=== PATIENT | male | born 1995 | race Caucasian/White ===

== ENCOUNTER 2018-04-29 08:48 | Emergency (ER) | payer BC, SELFPAY ==
[2018-04-29 08:49] VITALS: BP 162/80; PULSE 85; RESP 16; TEMP 36.6; O2SAT 96; BMI 30.8
--- NOTE | 2018-04-29 09:06 | CT_ITS ---
STUDY: CT ABDOMEN AND PELVIS WITH CONTRAST REASON FOR EXAM: Male, 22 years old. Abdominal pain and diarrhea. The patient has a history of Crohn's disease. RADIATION DOSAGE (If Supplied By Facility): CTDIvol = ( 14.67 ) mGy, DLP = ( 1134.09 ) mGycm TECHNIQUE: Transaxial images were obtained from the dome of the diaphragm to the symphysis pubis without oral contrast. 100 ml of Isovue 300 contrast was administered. Sagittal and coronal images were reconstructed. Individualized dose optimization techniques were used for this CT. COMPARISON: Comparison is made with prior examination dated May 12, 2017. FINDINGS: Mild degree of increased markings at the lung bases suggestive of dependent bibasilar atelectasis. The visualized portions of the heart are within normal limits. Normal liver. Normal gallbladder and extrahepatic biliary system. Normal spleen. Normal pancreas. Normal bilateral adrenal glands. Normal right kidney. Normal left kidney. There is a small hiatal hernia. There is fluid distention of the stomach. There is circumferential wall thickening of the distal ileum and terminal ileum. There is mild distention of the distal small bowel. There is a fecal material seen within the distal ileum. Small lymph nodes are seen within the mesentery in the midabdomen and right lower quadrant suggestive of mesenteric adenitis. There is evidence of mucosal thickening of the descending colon. The appendix is visualized and appears normal. Normal abdominal aorta. Normal inferior vena cava. There is borderline retroperitoneal lymphadenopathy with enlarged nodes no greater than 10mm in the short axis diameter. Normal urinary bladder. Normal abdominal wall. Normal osseous structures. CT/Abdomen/Pelvis W IV Cont ONLY IMPRESSION: Circumferential wall thickening of the terminal ileum and distal ileum with mild dilatation of the distal small bowel loops containing fecal material. Recurrent Crohn's disease is suspected. Electronically Signed: Kevin Alarcon MD at 11:00 EST Tel [phone], Service support ,
[2018-04-29 09:19] VITALS: BP 164/85; PULSE 14; RESP 75; TEMP 36.7; O2SAT 93
[2018-04-29] MEDS: 0.9% Normal Saline 1,000 ML 1000 ML IV (09:24)
[2018-04-29] MEDS: Morphine 4 MG/ML Syringe IV (09:24)
[2018-04-29] MEDS: Ondansetron 4 MG/2 ML Vial IV (09:24)
[2018-04-29 09:40] LABS: Absolute Lymphocyte Count 1.63 X10^3/ul (0.83-4.51); Basophil# 0.02 X10^3/uL; Basophil% 0.2 % (0-1); Eosinophil# 0.06 X10^3/uL; Eosinophils% 0.5 % (0-5); Hematocrit 46.4 % (40-54); Hemoglobin 16.3 g/dl (13.0-16.5); Lymphocyte # 1.63 X10^3/ul (4.0); Lymphocyte % 14.2 % (19-41); Mean Corp Hgb Conc 35.1 g/gl (32-36); Mean Corpuscular Hgb 29.4 pg (27.0-32.0); Mean Corpuscular Volume 83.6 fL (80-94); Mean Platelet Vol. 10.2 fl (6.2-12.0); Monocyte# 0.74 X10^3/uL; Monocyte% 6.4 % (0-10); Neutrophil # 9.02 X10^3/uL (2.7-7.7); Neutrophil % 78.4 % (47-70); Platelet Count 226 K/mm3 (150-450); RBC Distribution Width CV 12.8 % (11.6-14.6); RBC Distribution Width SD 38.9 fl (35.1-43.9); Red Blood Count 5.55 M/mm3 (4.6-6.2); White Blood Count 11.5 K/mm3 (4.4-11.0)
[2018-04-29 09:41] LABS: POSITIVE COUNT NO; POSITIVE DIFFERENTIAL NO; POSITIVE MORPHOLOGY NO
[2018-04-29 10:03] LABS: ALB/GLOB Ratio 1.1 RATIO (0.9-2.4); AST(SGOT) 28 U/L (15-37); Alanine Aminotransfer ALT/SGPT 61 U/L (16-61); Alkaline Phosphatase 84 U/L (45-117); Anion Gap 7 (5-15); BUN 21 mg/dL (7-18); BUN/Creat Ratio 21.8 RATIO (10-20); Calcium,Total 9.1 mg/dL (8.5-10.1); Chloride 105 mmol/L (98-107); Creatinine, Serum 0.96 mg/dL (0.70-1.30); EST Glomerular Filtration Rate 101 mL/min (>60); Est Glom Filt Rate - Afr Amer 123 mL/min (>60); Estimated Creatinine Clearance 137.95 ml/min; Globulin 3.5 g/dL (2.2-4.2); Glucose 106 mg/dL (74-106); Lipase 71 U/L (73-393); Potassium 4.3 mmol/L (3.5-5.1); Protein, Total 7.5 g/dL (6.4-8.2); Sodium Level 138 mmol/L (136-145)
[2018-04-29 10:54] VITALS: BP 158/77; PULSE 88; RESP 16; TEMP 36.7; O2SAT 97
[2018-04-29 10:54] LABS: Bacteria 0 SEEN /hpf (None Seen); Mucous, Urine 0 SEEN /hpf (<or=2+); Red Blood Cells-Urine 0 SEEN /hpf (0-5); White Blood Cells 0 SEEN /hpf (0-5)
[2018-04-29 10:55] LABS: Color, Urine Straw (Yellow); Glucose, Dipstick Normal (Normal); Ketone-Dipstick Negative (Negative); Leukocyte Esterase-Dipstick Negative /ul (Negative); Nitrite-Dipstick Negative (Negative); Occult Blood-Urine Negative /ul (Negative); Protein-Dipstick Negative (Negative); Urine Bilirubin Dipstick Negative (Negative); Urine Clarity Clear (Clear); Urine Urobilinogen Normal (Normal); Urine pH 6.5 (5.0 - 8.0)
[2018-04-29 11:03] LABS: Squamous Epithelial Cells - UA 0-5 SEEN /hpf (0-5)
--- NOTE | 2018-04-29 11:21 | ED.VISSUMM ---
- ER Visit Summary Date of Service: 04/29/18 Chief Complaint: Abdominal pain History of Present Illness: The patient is a 22 M with upper abdominal pain that started yesterday around 8 PM. Associated with nausea and diarrhea. No vomiting or blood. Patient has a history of Crohn's disease. He is not currently on steroids or medications for Crohn's disease. He has some chills but no fevers. No urinary symptoms. Physical Examination: Afebrile and vital signs unremarkable. Appears uncomfortable but not toxic or in distress. Heart regular. Lungs clear. Abdomen is tender diffusely, more so over the upper hemiabdomen. No guarding or rebound. No distention. Skin unremarkable. Back nontender. Test Results: White count 11.5. Otherwise labs unremarkable. Urinalysis unremarkable. CT shows evidence of inflammation at the distal ileum with some bowel dilatation. Emergency Department Course and Treatment: Patient received fluids, Zofran, morphine, and Toradol for pain and symptom control. Patient is not septic or obstructed. He would like to follow-up as an outpatient. He was prescribed Motrin, Zofran, and a prednisone taper. Follow-up with his doctor. Return for any new or worsening issues. Treatment Plan: As above Disposition: Discharge Impression: 1. Crohn's flare This note was generated with [employer] dictation software. It may contain incorrect words, spelling, and punctuation that were not noted in review of the chart prior to signing ED Disposition - Plan for ED Patient: Chief Complaint: Abd Pain Referrals: Marucs Babb DO [Primary Care Provider] -
--- NOTE | 2018-04-29 11:25 | ED.DCSUM_ITS ---
- ER Visit Summary Date of Service: 04/29/18 Chief Complaint: Abdominal pain History of Present Illness: The patient is a 22 M with upper abdominal pain that started yesterday around 8 PM. Associated with nausea and diarrhea. No vomiting or blood. Patient has a history of Crohn's disease. He is not curr ently on steroids or medications for Crohn's disease. He has some chills but no fevers. No urinary symptoms. Physical Examination: Afebrile and vital signs unremarkable. Appears uncomfortable but not toxic or in distress. Heart regular. Lungs clear. Abdomen is tender diffusely, more so over the upper hemiabdomen. No guarding or rebound. No distention. Skin unremarkable. Back nontender. Test Results: White count 11.5. Otherwise labs unremarkable. Urinalysis unremarkable. CT shows evidence of inflammation at the distal ileum with some bowel dilatation. Emergency Department Course and Treatment: Patient received fluids, Zofran, morphine, and Toradol for pain and symptom control. Patient is not septic or obstructed. He would like to follow-up as an outpatient. He was prescribed Motrin, Zofran, and a prednisone taper. Follow- up with his doctor. Return for any new or worsening issues. Treatment Plan: As above Disposition: Discharge Impression: 1. Crohn's flare This note was generated with [employer] dictation software. It may contain incorrect words, spelling, and punctuation that were not noted in review of the chart prior to signing ED Disposition - Plan for ED Patient: Chief Complaint: Abd Pain Referrals: Marcus Babb DO [Primary Care Provider] -
--- NOTE | 2018-04-29 11:25 | ED.DEP ---
ED Disposition - Plan for ED Patient: Chief Complaint: Abd Pain Instructions: Discharge Instructions for Crohn's Disease Prescriptions: Ondansetron [Zofran Odt] 4 mg PO Q8H PRN PRN #10 tab PRN Reason: Nausea Ibuprofen [Motrin] 800 mg PO TID PRN PRN #20 tab PRN Reason: Pain Prednisone 10 mg PO UD #33 tab Referrals: Marcus Babb DO [Primary Care Provider] -
[2018-04-29] MEDS: Ketorolac 30 MG/ML Syringe IV (11:30)
== END 2018-04-29 11:38 | disposition home or self-care (01) ==
LOC: ED 09:07
PROVIDERS: Emergency Provider Emergency Medicine; Family Provider Family Medicine; PCP Family Medicine
DX: K50.90 Crohn's disease, unspecified, without complications (principal); Z87.19 Personal history of other diseases of the digestive system
CPT/HCPCS: 74177; 80053; 81001; 83690; 85025; 96361; 96374; 96375; 99283; J7030; Q9967; A4216; J2405

== ENCOUNTER 2018-08-27 09:31 | Emergency (ER) | payer BC, SELFPAY ==
[2018-08-27 09:33] VITALS: BP 151/84; PULSE 98; RESP 14; TEMP 36.8; O2SAT 97; BMI 30.8
--- NOTE | 2018-08-27 09:44 | ED.VISSUMM ---
- ER Visit Summary Date of Service: 08/27/18 Chief Complaint: Nausea vomiting and diarrhea History of Present Illness: The patient is a 23 M who presents with nausea vomiting and diarrhea. He has had about 1 week of URI-like illness with congestion rhinorrhea sore throat. Last night he developed nausea vomiting diarrhea. He had 3 episodes of nonbloody nonbilious emesis as well as 5-6 episodes of diarrhea. He denies any hematochezia, melena, hematemesis. He also complains of some sharp diffuse abdominal cramping. He does have a history of Crohn's disease but specifically states that this does not feel like a Crohn's flare. He denies any fevers. Physical Examination: Afebrile vitals unremarkable No distress Heart regular rate and rhythm Lungs clear Abdomen soft nondistended normal bowel sounds he does have some diffuse nonfocal tenderness without guarding without rebound Test Results: CBC CMP lipase was notable only for mild leukocytosis with white count of 11.9. Emergency Department Course and Treatment: Patient was treated with IV fluids, Zofran, Imodium, Bentyl. He feels much better on reevaluation. Patient discharged to follow-up as an outpatient. This is most likely a viral gastroenteritis and is self-limiting. However he does understand return for new or worsening symptoms. Treatment Plan: [] Disposition: Discharge Impression: Gastroenteritis This note was generated with [employer] dictation software. It may contain incorrect words, spelling, and punctuation that were not noted in review of the chart prior to signing ED Disposition - Plan for ED Patient: Referrals: Marcus Babb DO [Primary Care Provider] -
[2018-08-27] MEDS: 0.9% Normal Saline 1,000 ML 1000 ML IV (09:51)
[2018-08-27] MEDS: Dicyclomine 10 MG Capsule 20 MG PO (09:58)
[2018-08-27] MEDS: Loperamide 2 MG Capsule 4 MG PO (09:58)
[2018-08-27] MEDS: Ondansetron 4 MG/2 ML Vial IV (09:58)
[2018-08-27 09:59] VITALS: TEMP 37.1
[2018-08-27 10:09] LABS: Absolute Lymphocyte Count 0.79 X10^3/ul (0.83-4.51); Absolute Neutrophil Count 10.4 X10^3/uL (2.0-7.7); Basophil# 0.01 X10^3/uL; Basophil% 0.1 % (0-1); Eosinophil# 0.04 X10^3/uL; Eosinophils% 0.3 % (0-5); Hemoglobin 16.6 g/dl (13.0-16.5); Lymphocyte # 0.79 X10^3/ul (4.0); Lymphocyte % 6.7 % (19-41); Mean Corp Hgb Conc 36.1 g/gl (32-36); Mean Corpuscular Hgb 30.1 pg (27.0-32.0); Mean Corpuscular Volume 83.5 fL (80-94); Mean Platelet Vol. 9.6 fl (6.2-12.0); Monocyte# 0.55 X10^3/uL; Monocyte% 4.6 % (0-10); Neutrophil # 10.43 X10^3/uL (2.7-7.7); POSITIVE COUNT NO; POSITIVE DIFFERENTIAL NO; POSITIVE MORPHOLOGY NO; Platelet Count 219 K/mm3 (150-450); RBC Distribution Width CV 12.8 % (11.6-14.6); RBC Distribution Width SD 38.4 fl (35.1-43.9); Red Blood Count 5.51 M/mm3 (4.6-6.2); White Blood Count 11.9 K/mm3 (4.4-11.0)
[2018-08-27 10:15] LABS: ALB/GLOB Ratio 1.2 RATIO (0.9-2.4); AST(SGOT) 20 U/L (15-37); Alanine Aminotransfer ALT/SGPT 50 U/L (16-61); Albumin, Serum 4.2 g/dL (3.2-5.0); Alkaline Phosphatase 94 U/L (45-117); Anion Gap 6 (5-15); BUN 25 mg/dL (7-18); Calcium,Total 8.7 mg/dL (8.5-10.1); Chloride 106 mmol/L (98-107); EST Glomerular Filtration Rate 97 mL/min (>60); Est Glom Filt Rate - Afr Amer 117 mL/min (>60); Estimated Creatinine Clearance 131.29 ml/min; Globulin 3.4 g/dL (2.2-4.2); Glucose 99 mg/dL (74-106); Lipase 70 U/L (73-393); Potassium 3.7 mmol/L (3.5-5.1); Protein, Total 7.6 g/dL (6.4-8.2); Sodium Level 137 mmol/L (136-145)
--- NOTE | 2018-08-27 10:38 | ED.DEP ---
ED Disposition - Plan for ED Patient: Instructions: ED Gastroenteritis Viral Referrals: Marcus Babb DO [Primary Care Provider] -
[2018-08-27 10:43] VITALS: BP 104/63; PULSE 71; RESP 15; O2SAT 98
== END 2018-08-27 10:44 | disposition home or self-care (01) ==
LOC: ED 10:13
PROVIDERS: Emergency Provider Emergency Medicine; Family Provider Family Medicine; PCP Family Medicine
DX: K52.9 Noninfective gastroenteritis and colitis, unspecified (principal); J34.89 Other specified disorders of nose and nasal sinuses; J02.9 Acute pharyngitis, unspecified; R09.81 Nasal congestion; K50.90 Crohn's disease, unspecified, without complications; Z87.19 Personal history of other diseases of the digestive system
CPT/HCPCS: 80053; 83690; 85025; 96361; 96374; 99284; J7030; A4216; J2405

== ENCOUNTER 2019-09-23 15:48 | Emergency (ER) | payer BC, SELFPAY ==
[2019-09-23 15:49] VITALS: BP 149/81; PULSE 73; RESP 18; TEMP 36.6; O2SAT 98; BMI 30.3
--- NOTE | 2019-09-23 16:14 | ED.DCSUM_ITS ---
History of Present Illness Chief Complaint: Dizziness Detail of Chief Complaint: Spinning sensation that is transient and lightheadedness Informant: Patient Onset: Today, Hours Context: Sudden Onset Timing: Intermittent Quality: Spinning sensation and lightheadedness Location: Home Current Severity: Mild Maximum Severity: Moderate Worsened by: Possibly change in position, supine Relieved by: Nothing Associated Symptoms: Unsteadiness and walking to the left when symptomatic Narrative: Patient is 24-year-old male with history of Crohn's disease who is on no medication presented with chief complaint of dizziness which he described as spinning and lightheadedness. He states when he had symptoms he walked to the left. Symptoms lasted no longer than 2 minutes. There was no visual, ocular auditory symptoms. And specifically, there was no complaint of diplopia. Patient denies headache. Denies rhinorrhea, congestion postnasal drainage. He denies ringing in his ears, decreased hearing or ear pain. He denies throat pain, dysphasia or dysphonia. He denies neck stiffness or pain. He denies photophobia. He denies cardiac respiratory symptoms. He denies nausea, vomiting or diarrhea. He states he has 2-3 bowel movements a day. He has not noticed any blood. He denies black or maroon stool. He denies paresthesia, anesthesia or motor weakness. He is a non-smoker. He is a social drinker at family gatherings, only. Denies drug use. He states his drove him to the emergency department. Prior similar symptoms: No Recent Illness/Hospitalization: No - Past Medical History (1) Crohns disease Status: Acute Past Medical History - Allergies and Home Meds Allergies/Adverse Reactions: Allergies No Known Allergies Allergy (Verified 09/23/19 15:51) Primary Care Physician: Marcus Babb DO [Primary Care Provider] - Prior records reviewed: Yes Surgical History: no surgical history Lives: Spouse/ Significant Other, With Family Smoking Status: Never smoker Alcohol: Occasional Drugs: None - Family History Maternal Family History: Reports: - - DIVERTICULITIS Review of Systems General: Denies: Chills, Fever, Subjective, Sweats Eyes: Denies: Visual changes - bilaterally, Blurred Vision - bilaterally, Diplopia ENT: Denies: Bilateral ear pain, Rhinorrhea, Sore throat Cardiovascular: Denies: Chest pain, Palpitations Respiratory: Denies: Dyspnea, Cough, Dyspnea on exertion Gastrointestinal: Denies: Abdominal pain, Nausea, Vomiting, Diarrhea, Melena, Hematochezia Genitourinary: Denies: Hematuria, Frequency Musculoskeletal: Denies: Myalgias, Arthralgias, Neck pain, Back pain, Swelling, Extremity Pain, -, - Neurological: Denies: Headache, Weakness, Parasthesia, Numbness, -, - Hematologic: Denies: Easy bruising, Easy bleeding Physical Exam Vital Signs/Narrative: Vital Signs Temp Pulse Resp BP Pulse Ox 09/23/19 15:49 97.9 F 73 18 149/81 H 98 Inital Vital Signs reviewed: Yes General: Well nourished, Well developed, No Acute Distress Head: Normocephalic, Atraumatic Eyes: Perrl, EOMI. Negative for: Pale conjunctiva, Scleral icterus ENT: Moist mucous membranes, No rhinorrhea, TM's clear Neck: Supple, Nontender Cardiovascular: Regular rate, Regular rhythm, No murmurs, Normal S1, Normal S2 Respiratory: No distress, CTA bilaterally, Chest nontender Abdomen: Soft, Nontender, Nondistended, Normal bowel sounds Back: Nontender, Normal Inspection Extremities: Nontender, No edema Skin: Normal color, No rash Neurological: Alert, Oriented x3, Cranial nerves II-XII grossly intact, Normal Strength, Normal Sensation, Normal DTR, Normal Gait - Gait is normal. Able to walk on heels and toes. Tandem gait is normal., - - Cerebellar testing is normal. Romberg test is negative. [place]-Hallpike maneuver precipitated symptoms with head turned to the left. Psychological: Normal affect, Normal Mood Diagnostic/Tx/Re-eval Laboratory Results 09/23/19 09/23/19 16:18 16:18 WBC 9.8 RBC 5.53 Hgb 16.0 Hct 47.3 MCV 85.5 MCH 28.9 MCHC 33.8 RDW Std Deviation 37.9 RDW Coeff of Bo 12.2 Plt Count 265 MPV 9.4 Immature Gran % (Auto) 0.700 Neut % (Auto) 61.8 Lymph % (Auto) 28.2 [place] % (Auto) 7.5 Eos % (Auto) 1.4 Baso % (Auto) 0.4 Absolute Neuts (auto) 6.1 Absolute Lymphs (auto) 2.76 Nucleated RBC % 0 Sodium 140 Potassium 4.3 Chloride 105 Carbon Dioxide 28.0 Anion Gap 7 BUN 17 Creatinine 1.02 Estim Creat Clear Calc 124.03 Est GFR (MDRD) Af Amer 113 Est GFR (MDRD) Non-Af 94 BUN/Creatinine Ratio 16.7 Glucose 96 Calcium 9.3 Return results are unremarkable. Since patient improved with Chito maneuver presume patient has paroxysmal benign positional vertigo - Medical Decision Making Patient had symptoms with head turned to left Chito maneuver was performed. Patient reported no symptoms when head was positioned to the left however he reported symptoms which resolved after 4 minutes when head was positioned to the right side. When he was reassessed at 1617 his symptoms had resolved. Because he has component of lightheadedness and history of Crohn's disease basic metabolic panel and CBC were obtained to assess for electrolytes, renal function as well as H&H. Plan is to discharge to home with appropriate home-going instructions Patient was informed of his results at 1650. He has had no return of his nausea they extension of motion/dizziness. Will discharge to home ED Disposition - Plan for ED Patient: Disposition: Home or Assisted Living Diagnosis: Benign paroxysmal positional vertigo due to bilateral vestibular disorder Referrals: Marcus Babb DO [Primary Care Provider] - As Needed
[2019-09-23 16:31] LABS: Absolute Lymphocyte Count 2.76 X10^3/uL (0.83-4.51); Absolute Neutrophil Count 6.1 X10^3/uL (2.0-7.7); Basophil# 0.04 X10^3/uL; Basophil% 0.4 % (0-1); Eosinophil# 0.14 X10^3/uL; Eosinophils% 1.4 % (0-5); Hematocrit 47.3 % (40-54); Lymphocyte # 2.76 X10^3/ul (4.0); Lymphocyte % 28.2 % (19-41); Mean Corp Hgb Conc 33.8 g/dL (32-36); Mean Corpuscular Hgb 28.9 pg (27.0-32.0); Mean Corpuscular Volume 85.5 fL (80-94); Mean Platelet Vol. 9.4 fl (6.2-12.0); Monocyte# 0.73 X10^3/uL; Monocyte% 7.5 % (0-10); NRBC Flagged by Analyzer 0 % (0-5); Neutrophil # 6.05 X10^3/uL (2.7-7.7); Neutrophil % 61.8 % (47-70); Platelet Count 265 K/mm3 (150-450); RBC Distribution Width CV 12.2 % (11.6-14.6); RBC Distribution Width SD 37.9 fl (35.1-43.9); Red Blood Count 5.53 M/mm3 (4.6-6.2); White Blood Count 9.8 K/mm3 (4.4-11.0)
[2019-09-23 16:37] LABS: Anion Gap 7 (5-15); BUN 17 mg/dL (7-18); BUN/Creat Ratio 16.7 RATIO (10-20); Calcium,Total 9.3 mg/dL (8.5-10.1); Chloride 105 mmol/L (98-107); Creatinine, Serum 1.02 mg/dL (0.70-1.30); EST Glomerular Filtration Rate 94 mL/min (>60); Est Glom Filt Rate - Afr Amer 113 mL/min (>60); Estimated Creatinine Clearance 124.03 ml/min; Glucose 96 mg/dL (74-106); Potassium 4.3 mmol/L (3.5-5.1); Sodium Level 140 mmol/L (136-145)
--- NOTE | 2019-09-23 16:54 | ED.VISSUMM ---
- ER Visit Summary Date of Service: 09/23/19 Chief Complaint: [] History of Present Illness: The patient is a 24 M [] Physical Examination: [] Test Results: [] Emergency Department Course and Treatment: [] Treatment Plan: [] Disposition: [] Impression: [] This note was generated with [employer] dictation software. It may contain incorrect words, spelling, and punctuation that were not noted in review of the chart prior to signing ED Disposition - Plan for ED Patient: Disposition: Home or Assisted Living Diagnosis: Benign paroxysmal positional vertigo due to bilateral vestibular disorder Instructions: ED BPV Vertigo Referrals: Marcus Babb DO [Primary Care Provider] - As Needed
[2019-09-23 17:06] VITALS: BP 135/77; PULSE 70; RESP 16; O2SAT 98
== END 2019-09-23 17:06 | disposition home or self-care (01) ==
PROVIDERS: Emergency Provider Emergency Medicine; PCP Family Medicine
DX: H81.13 Benign paroxysmal vertigo, bilateral (principal); K50.90 Crohn's disease, unspecified, without complications
CPT/HCPCS: 36415; 80048; 85025; 99282

== ENCOUNTER 2020-10-12 14:46 | Outpatient (RCR) | payer BC, SELFPAY | END 2020-11-16 23:59 | LOC: IMMUN 14:46 | PROVIDERS: Visit Provider Family Medicine | DX: Z23 Encounter for immunization (principal) | CPT/HCPCS: 0001A; 91300 ==

== ENCOUNTER 2021-04-11 14:43 | Emergency (ER) | payer BC, SELFPAY ==
[2021-04-11] VITALS (7 sets, daily range): BP systolic 102–137; BP diastolic 68–95; PULSE 76–98; RESP 16–18; TEMP 36.7–37.2; O2SAT 94–99; BMI 34.7
--- NOTE | 2021-04-11 15:34 | EX.ED.DYSGE1 ---
HPI History of Present Illness Chief Complaint: Abd Pain Informant: patient Onset/Context/Timing Onset: Today Context: Gradual Onset Current Severity: Moderate Maximum Severity: Moderate Narrative Narrative: Patient present secondary abdominal pain that he believes is secondary to a Crohn's flare. He was diagnosed with Crohn's at the age of 6. He states every year about this time he has a flare. About 3 hours ago he started developing upper abdominal pain with some mild lower abdominal cramping. He has had some diarrhea but no noted blood. He has chills but no fever. He is not currently followed by anyone for his Crohn's disease and is not on any medication for it. [facility] Medical History Crohn's disease Diverticulitis Home Medications NK 09/23/19 [History Last Taken Unknown] dicyclomine 20 mg PO TID PRN #20 tab 04/11/21 [Rx Last Taken Unknown] hydrocodone-acetaminophen 1 tab PO Q6H PRN 3 Days #10 tab 04/11/21 [Rx Last Taken Unknown] prednisone See Taper PO DAILY #63 tab 04/11/21 [Rx Last Taken Unknown] Allergy/AdvReac Type Severity Reaction Status Date / Time No Known Allergies Allergy Verified 04/11/21 14:46 Surgical History History of placement of ear tubes Social History Smoking Status: Never smoker ROS [facility] ED Constitutional Constitutional ED: Reports chills; Denies fever(s) Eyes Eyes: Denies change in vision ENT ENT ED: Denies sore throat Cardiovascular Cardiovascular: Denies chest pain Respiratory/Chest Respiratory/Chest: Denies cough or dyspnea Gastrointestinal Gastrointestinal: Reports abdominal pain, diarrhea and nausea; Denies vomiting Genitourinary Genitourinary ED: Denies dysuria Musculoskeletal Musculoskeletal: Denies back pain Integumentary Denies rash Neurologic Neurologic: Denies headache(s) or weakness Endocrine Endocrinology: Denies polydipsia or polyuria Allergic/Immunologic Allergic/Immunologic ED: Denies urticaria EXAM Physical Exam Const Vital Signs: 04/11/21 14:43 04/11/21 15:32 04/11/21 16:37 Temperature 98.8 F 98.9 F 98.6 F Temperature Source Temporal Temporal Temporal Pulse Rate 98 98 98 Respiratory Rate 16 18 16 Blood Pressure 137/95 H 130/81 H 115/82 H Blood Pressure Mean 109 97 93 Pulse Ox 99 98 96 Oxygen Delivery Method Room Air Room Air Room Air 04/11/21 16:59 04/11/21 17:26 04/11/21 18:52 Temperature 98.9 F 98.1 F Temperature Source Temporal Oral Pulse Rate 76 88 84 Respiratory Rate 16 16 16 Blood Pressure 118/68 116/76 102/71 Blood Pressure Mean 84 89 81 Pulse Ox 96 94 Oxygen Delivery Method Room Air Room Air Room Air 04/11/21 19:14 Temperature 98.9 F Temperature Source Temporal Pulse Rate 89 Respiratory Rate 16 Blood Pressure 122/72 H Blood Pressure Mean 88 Pulse Ox 96 Oxygen Delivery Method Room Air Positive well nourished and well developed General Appearance ED: well developed HEENT Reports moist mucous membranes Eyes PERRL and EOMs intact bilaterally Neck supple Chest Wall inspection of chest normal and palpation of chest normal Resp normal respiratory effort and clear to auscultation bilaterally Cardio regular rate and regular rhythm GI Auscultation: hypoactive bowel sounds Palpation: soft and tender other (Mild diffuse tenderness palpation. No guarding or rebound.) Extremity normal to inspection Neuro oriented x3 Sensorium / Orientation: alert Psych mental status grossly normal Skin no rashes or lesions noted MDM MDM MDM Narrative Medical decision making narrative: Lab work obtained. Patient given morphine and Zofran for pain along with IV fluids. He is given a dose of p.o. Bentyl. Lab Data Attestation: I reviewed the patient's lab results. Labs: Laboratory Results - last 24 hr 04/11/21 04/11/21 04/11/21 15:40 15:40 15:40 WBC 9.6 RBC 5.87 Hgb 17.0 H Hct 47.7 MCV 81.3 MCH 29.0 MCHC 35.6 RDW Std Deviation 36.6 RDW Coeff of Bo 12.4 Plt Count 241 MPV 9.2 Immature Gran % (Auto) 0.400 Neut % (Auto) 90.5 H Lymph % (Auto) 8.1 L [place] % (Auto) 0.4 Eos % (Auto) 0.4 Baso % (Auto) 0.2 Absolute Neuts (auto) 8.7 H Absolute Lymphs (auto) 0.78 L Nucleated RBC % 0 ESR 1 Sodium 139 Potassium 3.7 Chloride 106 Carbon Dioxide 27.0 Anion Gap 6 BUN 19 H Creatinine 1.17 Estim Creat Clear Calc 110.26 Est GFR (MDRD) Af Amer 96 Est GFR (MDRD) Non-Af 79 BUN/Creatinine Ratio 16.2 Glucose 103 Lactic Acid Calcium 9.6 Total Bilirubin 0.70 Direct Bilirubin 0.21 AST 20 ALT 60 Alkaline Phosphatase 93 C-React Prot Ext Range Total Protein 7.7 Albumin 4.0 Globulin 3.7 Lipase 53 L 04/11/21 04/11/21 15:40 17:37 WBC RBC Hgb Hct MCV MCH MCHC RDW Std Deviation RDW Coeff of Bo Plt Count MPV Immature Gran % (Auto) Neut % (Auto) Lymph % (Auto) [place] % (Auto) Eos % (Auto) Baso % (Auto) Absolute Neuts (auto) Absolute Lymphs (auto) Nucleated RBC % ESR Sodium Potassium Chloride Carbon Dioxide Anion Gap BUN Creatinine Estim Creat Clear Calc Est GFR (MDRD) Af Amer Est GFR (MDRD) Non-Af BUN/Creatinine Ratio Glucose Lactic Acid 2.3 H* Calcium Total Bilirubin Direct Bilirubin AST ALT Alkaline Phosphatase C-React Prot Ext Range 9.31 H Total Protein Albumin Globulin Lipase Radiography Diagnostic Testing: Clinical Impression(s) from Imaging Studies Abdomen/Pelvis CT 04/11/21 19:14 IMPRESSION: Findings consistent with acute flare of Crohn''s disease affecting the terminal ileum. No focal fluid collection or fistula. Electronically Signed: Berny Jacobs MD at 20:15 EST Tel , Service support , Treatment and Re-Evaluation Comments:: Initial lab work unremarkable. I spoke with Dr. Gómez, on-call for GI. As patient is not currently on anything for Crohn's disease he did asked that we give the patient a dose of Solu-Medrol and start him on prednisone at home. He did also ask for sed rate, CRP, lactic acid and stool studies if available. CT scan abdomen pelvis with contrast obtained. CT scan does confirm findings consistent with an acute flare of Crohn's disease affecting the terminal ileum. No fluid collection or fistula noted. Test results are discussed with patient and spouse at bedside. Patient be given prescription for prednisone along with Bentyl. He is to follow-up with Dr. Gómez as an outpatient. Discharge Plan Triage Chief Complaint: Abd Pain ED Provider: Candace Stewart Dx/Rx/DC Orders Clinical Impression: Crohns disease Instructions: ED Crohn's Disease Prescriptions: New dicyclomine 20 mg tablet 20 mg PO TID PRN (Reason: abdominal cramping) Qty: 20 RF: 0 prednisone 10 mg tablet See Taper mg PO DAILY Qty: 63 RF: 0 hydrocodone-acetaminophen 5-325 mg tablet 1 tab PO Q6H PRN (Reason: pain) 3 Days Qty: 10 RF: 0 No Action NK RF: 0 Primary Care Provider: Abner Sheth Referrals: Abner Sheth DO [Primary Care Provider] - Brown Gómez DO [STAFF PHYSICIAN] - As soon as possible Disposition Disposition: Home, Self Care
[2021-04-11] MEDS: Morphine 4 MG/ML Syringe IV (15:43)
[2021-04-11] MEDS: Ondansetron 4 MG/2 ML Vial IV (15:43)
[2021-04-11] MEDS: 0.9% Normal Saline 1,000 ML 1000 ML IV (15:43)
[2021-04-11 15:51] LABS: Absolute Lymphocyte Count 0.78 X10^3/uL (0.83-4.51); Absolute Neutrophil Count 8.7 X10^3/uL (2.0-7.7); Basophil# 0.02 X10^3/uL; Basophil% 0.2 % (0-1); Eosinophil# 0.04 X10^3/uL; Eosinophils% 0.4 % (0-5); Hematocrit 47.7 % (40-54); Lymphocyte # 0.78 X10^3/ul (0.83-4.51); Lymphocyte % 8.1 % (19-41); Mean Corp Hgb Conc 35.6 g/dL (32-36); Mean Corpuscular Volume 81.3 fL (80-94); Mean Platelet Vol. 9.2 fl (6.2-12.0); Monocyte# 0.04 X10^3/uL; Monocyte% 0.4 % (0-10); NRBC Flagged by Analyzer 0 % (0-5); Neutrophil # 8.68 X10^3/uL (2.7-7.7); Neutrophil % 90.5 % (47-70); Platelet Count 241 K/mm3 (150-450); RBC Distribution Width CV 12.4 % (11.6-14.6); RBC Distribution Width SD 36.6 fl (35.1-43.9); Red Blood Count 5.87 M/mm3 (4.6-6.2); White Blood Count 9.6 K/mm3 (4.4-11.0)
[2021-04-11 16:08] LABS: AST(SGOT) 20 U/L (15-37); Alanine Aminotransfer ALT/SGPT 60 U/L (16-61); Alkaline Phosphatase 93 U/L (45-117); Anion Gap 6 (5-15); BUN 19 mg/dL (7-18); BUN/Creat Ratio 16.2 RATIO (10-20); Bilirubin, Direct 0.21 mg/dL (0.00-0.30); Calcium,Total 9.6 mg/dL (8.5-10.1); Chloride 106 mmol/L (98-107); Creatinine, Serum 1.17 mg/dL (0.70-1.30); EST Glomerular Filtration Rate 79 mL/min (>60); Est Glom Filt Rate - Afr Amer 96 mL/min (>60); Estimated Creatinine Clearance 110.26 ml/min; Globulin 3.7 g/dL (2.2-4.2); Glucose 103 mg/dL (74-106); Lipase 53 U/L (73-393); Potassium 3.7 mmol/L (3.5-5.1); Protein, Total 7.7 g/dL (6.4-8.2); Sodium Level 139 mmol/L (136-145)
[2021-04-11] MEDS: 0.9% Normal Saline 1,000 ML 150 ML IV (17:00)
[2021-04-11] MEDS: Dicyclomine 10 MG Capsule 20 MG PO (17:41)
[2021-04-11 18:20] LABS: CRP 9.31 mg/L (0.0-3.0)
[2021-04-11 18:51] LABS: Lactic Acid 2.3 mmol/L (0.4-1.9)
[2021-04-11 18:59] LABS: Erythrocyte Sedimentation Rate 1 mm/hr (0-20)
--- NOTE | 2021-04-11 19:14 | CT_ITS ---
INDICATION: abd pain -- IV PO Contrast EXAMINATION: CT Abdomen And Pelvis W/ Contrast Injection TECHNIQUE: Helically acquired images were obtained of the abdomen and pelvis after IV contrast. A radiation dose optimization technique was used for this scan. IV Contrast dosage and agent: Oral and amp; IV Gastrografin and amp; 100mL Isovue-300 Oral contrast: Yes. COMPARISON: 04/29/2018. FINDINGS: Visualized lung bases: Unremarkable Liver: Unremarkable Gallbladder: Unremarkable Spleen: Unremarkable Pancreas: Unremarkable Adrenal Glands: Unremarkable Kidneys: Unremarkable Vasculature: Unremarkable GI Tract: There is bowel wall thickening and mucosal hyperenhancement of the terminal ileum with surrounding mesenteric fat stranding. Lymphadenopathy: None Peritoneum: No ascites. Bladder: Unremarkable Reproductive organs: Unremarkable Bones/Soft tissues: No suspicious osseous or soft tissue lesions CT/Abdomen/Pelvis WITH Contrast IMPRESSION: Findings consistent with acute flare of Crohn''s disease affecting the terminal ileum. No focal fluid collection or fistula. Electronically Signed: Berny Jacobs MD at 20:15 EST Tel , Service support ,
[2021-04-11] MEDS: MethylPREDNISolone 125 MG/2 ML Vial 60 MG IV (19:33)
[2021-04-11] MEDS: Ketorolac 30 MG/ML Syringe IV (20:40)
[2021-04-11 21:59] LABS: Reflex Lactate? Y
== END 2021-04-11 21:09 | disposition home or self-care (01) ==
PROVIDERS: Emergency Provider Emergency Medicine; PCP Student in an Organized Health Care Education/Training Program
DX: K50.90 Crohn's disease, unspecified, without complications (principal); Z87.19 Personal history of other diseases of the digestive system
CPT/HCPCS: 74177; 80048; 80076; 83605; 83690; 85025; 85652; 86140; 96361; 96374; 96375; 99284; J7030; Q9967; A4216; J2405

== ENCOUNTER 2021-04-14 09:03 | Emergency (ER) | payer BC, SELFPAY ==
[2021-04-14 09:04] VITALS: BP 140/94; PULSE 71; RESP 16; TEMP 36.8; O2SAT 97; BMI 35.2
[2021-04-14 09:11] VITALS: BP 139/96; PULSE 68; RESP 17; O2SAT 97
--- NOTE | 2021-04-14 09:21 | ED.VIS.CHEST ---
HPI History of Present Illness Chief Complaint: Chest Pain Informant: patient Onset/Context/Timing Onset: Yesterday Activity at onset: gradual Timing: Continuous Quality: Positive for Aching and Pressure Location: Substernal Worsened By: - (Moving around) Relieved By: Nothing Associated Symptoms: Positive for Cough, Lightheadedness, Acid Reflux and Palpitations; Negative for Nausea, Vomiting, Diaphoresis, Dyspnea and Fever Narrative Narrative: Patient presents with chest pain that began last night. Patient states that his pain has been constant but waxing and waning since last night. Patient describes as aching and pressure. Patient states it is over the substernal area. Patient states it is worse whenever he moves. Patient states nothing seems to help with the pain. Patient admits to some lightheadedness today. Patient also admits to some heartburn and reflux. Patient states he felt like his heart was beating hard last night. Patient admits to a mild cough but denies any sputum production. Patient denies any fevers or chills. Patient denies any nausea or vomiting. Patient denies any diaphoresis or shortness of breath. Patient states he was recently started on prednisone and doxycycline for Crohn's flareup. Patient is unsure if this is a reaction to his recent medications. CVD Risk Factors: Negative for Hypertension, Diabetes, Hypercholesterolemia, Family History 1' </=55 and Smoking PE Risk Factors: Negative for Recent Travel/Surgery, Recent Immobilization, Prior DVT or PE, Cancer and OCP + Smoking + >/=35 PFSH PFSH Medical History Crohn's disease Diverticulitis Home Medications dicyclomine 20 mg PO TID PRN #20 tab 04/11/21 [Rx Last Taken Unknown] hydrocodone-acetaminophen 1 tab PO Q6H PRN 3 Days #10 tab 04/11/21 [Rx Last Taken Unknown] prednisone See Taper PO DAILY #63 tab 04/11/21 [Rx Last Taken Unknown] omeprazole 20 mg PO DAILY #30 capsule 04/14/21 [Rx Last Taken Unknown] Allergy/AdvReac Type Severity Reaction Status Date / Time No Known Allergies Allergy Verified 04/14/21 09:04 Surgical History History of placement of ear tubes Social History Smoking Status: Never smoker ROS ROS ED Constitutional Constitutional ED: Denies chills or fever(s) Eyes Eyes: Denies blurry vision or change in vision ENT ENT ED: Denies rhinorrhea or sore throat Cardiovascular Cardiovascular: Reports as per HPI, chest pain and palpitations Respiratory/Chest Respiratory/Chest: Reports cough; Denies dyspnea Gastrointestinal Gastrointestinal: Denies abdominal pain, nausea or vomiting Genitourinary Genitourinary ED: Denies dysuria or hematuria Musculoskeletal Musculoskeletal: Denies back pain or neck pain Integumentary Denies abscess or rash Neurologic Neurologic: Reports headache(s); Denies weakness Allergic/Immunologic Allergic/Immunologic ED: Denies mouth swelling or urticaria EXAM Physical Exam Const Vital Signs: 04/14/21 09:04 04/14/21 09:11 Temperature 98.3 F Temperature Source Temporal Pulse Rate 71 68 Respiratory Rate 16 17 Respiratory Effort Normal Blood Pressure 140/94 H 139/96 H Blood Pressure Mean 109 110 Pulse Ox 97 97 Oxygen Delivery Method Room Air Room Air Positive well nourished and well developed General Appearance ED: well developed HEENT normocephalic and atraumatic Eyes PERRL and EOMs intact bilaterally Neck supple and no JVD Chest Wall palpation of chest normal Resp normal respiratory effort and clear to auscultation bilaterally Effort and Inspection: Negative for respiratory distress Cardio regular rate, regular rhythm and no murmurs GI normal to inspection, nondistended, normoactive bowel sounds, soft to palpation, non-tender and non-distended Extremity normal to inspection General Extremety ED: Negative for edema or tenderness General Extremity: Negative for edema Neuro oriented x3, CN's II-XII intact bilaterally and no sensory deficits noted Sensorium / Orientation: awake and alert Motor Exam: strength 5/5 throughout Psych mental status grossly normal Heart Score History: Slightly/Non-Suspicious ECG: Normal Age: </= 45 years Risk Factors: No Risk Factors Troponin: </= Normal Limit Score: 0 MDM MDM MDM Narrative Medical decision making narrative: EKG was obtained. On my interpretation, it showed a normal sinus rhythm with a rate of 66. [place] interval, QRS interval, and QTc intervals were all normal. [place] was normal. There are no acute ST or T wave changes. CBC and comprehensive metabolic profile were within normal limits. High-sensitivity troponin was 3. Patient was given a GI cocktail. Patient states this helped with his chest pain. Patient was given a prescription for Prilosec. Patient was instructed to continue the prednisone as prescribed. Patient was instructed to only take the dicyclomine as needed. Patient was instructed to follow-up with his primary care physician in 5 to 7 days. Patient was instructed return if worse in any way. Patient understood and was agreeable with the plan. All questions were answered. Lab Data Attestation: I reviewed the patient's lab results. Labs: Laboratory Results - last 24 hr 04/14/21 04/14/21 09:30 09:30 WBC 9.1 RBC 5.17 Hgb 14.7 Hct 42.5 MCV 82.2 MCH 28.4 MCHC 34.6 RDW Std Deviation 38.4 RDW Coeff of Bo 12.8 Plt Count 257 MPV 9.5 Immature Gran % (Auto) 0.900 Neut % (Auto) 51.9 Lymph % (Auto) 34.6 Martin % (Auto) 10.3 H Eos % (Auto) 1.8 Baso % (Auto) 0.5 Absolute Neuts (auto) 4.7 Absolute Lymphs (auto) 3.15 Nucleated RBC % 0 Sodium 141 Potassium 3.8 Chloride 108 H Carbon Dioxide 28.0 Anion Gap 5 BUN 24 H Creatinine 1.06 Estim Creat Clear Calc 121.71 Est GFR (MDRD) Af Amer 107 Est GFR (MDRD) Non-Af 89 BUN/Creatinine Ratio 22.6 H Glucose 87 Calcium 9.1 Total Bilirubin 0.40 AST 27 ALT 98 H Alkaline Phosphatase 78 Troponin I High Sens 3 Total Protein 6.7 Albumin 3.2 Globulin 3.5 Albumin/Globulin Ratio 0.9 EKG Initial EKG: Attestation: I personally reviewed and interpreted this EKG as follows: Interpretation: Sinus Rhythm (66) and No Acute Injury Pattern Prior EKG tracings: available for review Prior: Unchanged (04/14/2021) Discharge Plan Triage Chief Complaint: Chest Pain ED Provider: Long Leiva Dx/Rx/DC Orders Clinical Impression: Chest pain Instructions: ED Chest Pain, Uncertain Cause Prescriptions: New omeprazole [omeprazole] 20 MG capsule 20 mg PO DAILY Qty: 30 RF: 0 No Action dicyclomine 20 mg tablet 20 mg PO TID PRN (Reason: abdominal cramping) Qty: 20 RF: 0 prednisone 10 mg tablet See Taper mg PO DAILY Qty: 63 RF: 0 hydrocodone-acetaminophen 5-325 mg tablet 1 tab PO Q6H PRN (Reason: pain) 3 Days Qty: 10 RF: 0 Primary Care Provider: Abner Sheth Referrals: Abner Sheth DO [Primary Care Provider] - 3-5 Days Disposition Disposition: Home, Self Care
--- NOTE | 2021-04-14 09:26 | EKG12_ITS ---
Test Reason : CP Blood Pressure : / mmHG Vent. Rate : 066 BPM Atrial Rate : 066 BPM P-R Int : 162 ms QRS Dur : 106 ms QT Int : 384 ms P-R-T Axes : 027 088 029 degrees QTc Int : 402 ms Normal sinus rhythm Normal ECG Confirmed by RAMON HARGROVE, KIRSTIN ([id number]), book or script editor LATISHA CID ([id number]) on 04/18/2021 11:35:43 AM Referred By: HENRIQUE Confirmed By:KIRSTIN NAVARRO MD
[2021-04-14] MEDS: Mag Hydrox/Al Hydrox/Simeth 30 ML UDC PO (09:38)
[2021-04-14 10:17] LABS: Absolute Lymphocyte Count 3.15 X10^3/uL (0.83-4.51); Absolute Neutrophil Count 4.7 X10^3/uL (2.0-7.7); Basophil# 0.05 X10^3/uL; Basophil% 0.5 % (0-1); Eosinophil# 0.16 X10^3/uL; Eosinophils% 1.8 % (0-5); Hematocrit 42.5 % (40-54); Hemoglobin 14.7 g/dL (13.0-16.5); Lymphocyte # 3.15 X10^3/ul (0.83-4.51); Lymphocyte % 34.6 % (19-41); Mean Corp Hgb Conc 34.6 g/dL (32-36); Mean Corpuscular Hgb 28.4 pg (27.0-32.0); Mean Corpuscular Volume 82.2 fL (80-94); Mean Platelet Vol. 9.5 fl (6.2-12.0); Monocyte# 0.94 X10^3/uL; Monocyte% 10.3 % (0-10); NRBC Flagged by Analyzer 0 % (0-5); Neutrophil # 4.73 X10^3/uL (2.7-7.7); Neutrophil % 51.9 % (47-70); Platelet Count 257 K/mm3 (150-450); RBC Distribution Width CV 12.8 % (11.6-14.6); RBC Distribution Width SD 38.4 fl (35.1-43.9); Red Blood Count 5.17 M/mm3 (4.6-6.2); White Blood Count 9.1 K/mm3 (4.4-11.0)
[2021-04-14 10:37] LABS: ALB/GLOB Ratio 0.9 RATIO (0.9-2.4); AST(SGOT) 27 U/L (15-37); Alanine Aminotransfer ALT/SGPT 98 U/L (16-61); Albumin, Serum 3.2 g/dL (3.2-5.0); Alkaline Phosphatase 78 U/L (45-117); Anion Gap 5 (5-15); BUN 24 mg/dL (7-18); BUN/Creat Ratio 22.6 RATIO (10-20); Calcium,Total 9.1 mg/dL (8.5-10.1); Chloride 108 mmol/L (98-107); Creatinine, Serum 1.06 mg/dL (0.70-1.30); EST Glomerular Filtration Rate 89 mL/min (>60); Est Glom Filt Rate - Afr Amer 107 mL/min (>60); Estimated Creatinine Clearance 121.71 ml/min; Globulin 3.5 g/dL (2.2-4.2); Glucose 87 mg/dL (74-106); Potassium 3.8 mmol/L (3.5-5.1); Protein, Total 6.7 g/dL (6.4-8.2); Sodium Level 141 mmol/L (136-145); Troponin-I HS 3 pg/mL (3.0-78.0)
[2021-04-14 11:18] VITALS: BP 135/69; PULSE 72; RESP 15; O2SAT 97
== END 2021-04-14 11:20 | disposition home or self-care (01) ==
PROVIDERS: Emergency Provider Emergency Medicine; PCP Student in an Organized Health Care Education/Training Program
DX: R07.89 Other chest pain (principal); R05.9 Cough, unspecified; K50.90 Crohn's disease, unspecified, without complications; Z87.19 Personal history of other diseases of the digestive system; Z79.52 Long term (current) use of systemic steroids
CPT/HCPCS: 80053; 84484; 85025; 93005; 99283; A4216

== ENCOUNTER 2021-05-13 14:33 | Outpatient (CLI) | payer BC, SELFPAY ==
[2021-05-13 15:20] LABS: Erythrocyte Sedimentation Rate 6 mm/hr (0-20)
[2021-05-13 15:24] LABS: CRP 8.08 mg/L (0.0-3.0); LDH 196 U/L (87-241)
[2021-05-15 14:09] LABS: Anti-Centromere B Ab <0.2 AI (0.0-0.9); Anti-Chromatin <0.2 AI (0.0-0.9); Anti-Jo <0.2 AI (0.0-0.9); Anti-Scleroderma-70 AB <0.2 AI (0.0-0.9); RNP Ab <0.2 AI (0.0-0.9); SJOGREN'S Anti-SS-A test < 0.2 AI (0.0-0.9); SJOGREN'S Anti-SS-B test < 0.2 AI (0.0-0.9); Smith Ab <0.2 AI (0.0-0.9)
[2021-05-15 18:12] LABS: Anti-Mitochondrial AB <20.0 Units (0.0-20.0); Anti-dsDNA Ab <1 IU/mL (0-9)
[2021-05-18 04:07] LABS: Cytoplasmic Ab (C-ANCA) <1:20 titer (Neg:<1:20); Endomysial Antibody IgA Negative (Negative); HEPATITIS B SURFACE AG Negative (Negative); Hepatitis A IgM Antibody Negative (Negative); Hepatitis B Core AB IgM Negative (Negative); Immunoglobulin A 316 mg/dL (90-386); Immunoglobulin E 64 IU/mL (6-495); Immunoglobulin G 737 mg/dL (603-1613)
[2021-05-18 08:37] LABS: Anti-Smooth Muscle ABS 7 Units (0-19); Hep C Antibodies <0.1 s/co ratio (0.0-0.9); Immunoglobulin M 141 mg/dL (20-172); Perinuclear Ab (P-ANCA) <1:20 titer (Neg:<1:20)
[2021-05-18 08:38] LABS: t-Transglutaminase IgA <2 U/mL (0-3)
== END 2021-05-13 23:59 | disposition short-term general hospital (02) ==
LOC: LAB 14:34
PROVIDERS: PCP Student in an Organized Health Care Education/Training Program; Visit Provider Internal Medicine Gastroenterology
DX: K50.90 Crohn's disease, unspecified, without complications (principal)
CPT/HCPCS: 80074; 82784; 82785; 83516; 83615; 85652; 86140; 86225; 86235; 86255; 86256

== ENCOUNTER 2021-06-27 07:35 | Day surgery (SDC) | payer BC, SELFPAY ==
[2021-06-27] VITALS (7 sets, daily range): BP systolic 108–141; BP diastolic 63–90; PULSE 76–93; RESP 16–18; TEMP 36.2–36.5; O2SAT 94–100; BMI 34.2
[2021-06-27] MEDS: Lactated Ringers 1,000 ML 15 ML IV (07:50)
--- NOTE | 2021-06-27 08:30 | COLBX_PTH ---
PATIENT: BERKLEY AQUINO Jr. LOC: EN U#:[id number] AGE/SX: 25/M ROOM: RE06/27/[address]: Dr. Brown Gómez DO : 1995 BED: DIS: 06/27/2021 SPEC #: [id number] RECD: 06/27/21 13:43 STATUS: ABRAHAM REDiamante #: [id number] SHANNON: 06/27/21 08:[address]: Brown Gómez DEPT: SURGICAL PATHOLOGY RECD BY: Jessica Wagoner ENTERED: 06/28/21 09:25 SP TYPE: COLON BX OTHR DR: Dr. Abner Sheth DO Tissues: Ileum, NOS Procedures: Surgery Specimen Level IV HEADER OPERATION: Colonoscopy (MAC), dilation, biopsy PRE-OP DIAGNOSIS: Crohn?s disease TISSUE SUBMITTED: Terminal ileum MICROSCOPIC DIAGNOSIS Terminal ileum, biopsy: Fragments of small intestinal mucosa with ulceration, acute and chronic inflammation and granulation tissue reaction. See comment. SJ:jennifer 07/01/2021 COMMENT Minimal glandular distortion is noted. Granulomas are not seen. Correlation with clinical, endoscopic findings and appropriate follow up are necessary. MICROSCOPIC DESCRIPTION Slides are reviewed. GROSS DESCRIPTION Received in fixative is one container labeled with the patient's name and designated terminal ileum. The specimen consists of multiple irregular fragments of light prieto soft tissue that in aggregate measure 1.2 x 0.4 x 0.1 cm. The specimen is totally submitted in one cassette. / YU:jennifer 06/28/2021 TC:3 CPT: 04180
--- NOTE | 2021-06-27 09:06 | HP.PCM_ITS ---
History and Physical Date of Admission: 06/27/21 25 M who presents to the office today for Initial evaluation of Crohn's disease. He was recently seen in emergency room in 04/15/2021 for Crohn's flare. He was given prednisone taper, Bentyl, morphine and Zofran. He is currently not on any medicines at this time. He believes he could have had a allergic reaction to the dicyclomine because he developed chest pain after that. His sister who is 2 years younger also has a diagnosis of Crohn's disease. At this time he is not have any abdominal pain, cramping, lower GI bleeding. To this date he is not now extraintestinal manifestations of Crohn's disease including no dermatitis about a 4 minutes, pyoderma gangrenosum, uveitis, hepatitis. He has not had any MRIs or ultrasounds of the liver. His weight has been stable. He has had 4 CT scans at our institution in 2015, , and now 2020. They all show inflammation in the right side of the colon extending into the terminal ileum with mesenteric lymphadenopathy. He Reports Crohn?s disease diagnosed at age 6. Normally gets flares about once a year around the fall/winter holiday?s for the last 5-8 years with hospitalization normally required. He was placed on Imuran with pentasa until age 13/14 then started on entocort. At age 14 he stopped taking his medications. He reports that day to day he has no symptoms until a yearly flare. Flare symptoms include upper abdomen with a sharp stabbing pain with abdominal cramping with diarrhea. Denies day to day symptoms. Previously seen by Dr. Lyon and Dr. Howe, is unaware of when last colonoscopy was performed. CT abd/pel 04.11.21 Findings consistent with acute flare of Crohn''s disease affecting the terminal ileum. ROS Const Constitutional: No anorexia, fatigue, fever(s), weight change or sleep problems Eyes Eyes: No change in vision ENT ENT: No abnormal hearing, difficulty swallowing, mouth lesions, tongue swelling or throat swelling Resp Respiratory: No cough or shortness of breath Cardio Cardiology: No chest pain at rest, chest pain with exertion, shortness of breath or dyspnea on exertion Gastro GI: No difficulty swallowing Genitourinary Male: No difficulty urinating or burning urination Musc Musculoskeletal: No joint pain, joint swelling, muscle weakness or decreased muscle mass Skin Skin: No hair loss in leg, yellowing of the eye, itchy eyes, rash, skin ulcer or skin swelling Neuro Neurology: No abnormal hearing, abnormal movements, confusion, unsteady gait/balance or memory loss Psych Psychiatric: No anxiety, No confusion and No memory loss Endo Endocrine: No fatigue or weight change Aller/Imm Allergy/Immunologic: No itchy eyes, throat swelling or tongue swelling Deshaun/Lymp Hematologic/Lymphatic: No easy bleeding, easy bruising or enlarged lymph nodes Exam Const General: cooperative and comfortable Nutritional Appearance: average body habitus and well nourished [facility] Head: normal to inspection Ears: hearing grossly normal bilaterally Nose: external nose normal Face and sinus: normal facial exam Mouth: oral mucosae normal Throat: posterior oropharynx normal Eyes General: appearance normal, both eyes and all related structures Neck Neck: normal visual inspection Chest Chest palpation & inspection: normal inspection of the chest and normal palpation of entire chest wall Resp Effort & Inspection: normal respiratory effort Auscultation: Bilateral: Clear to Auscultation Cardio Palpation: normal PMI Rate: regular rate Rhythm: regular rhythm GI Inspection: normal to inspection Auscultation: normal bowel sounds Percussion: normal to percussion Palpation: no hepatosplenomegaly Skin General: no rashes or lesions noted Neuro General: patient alert Extrem General: normal to inspection Psych Affect: normal affect Quality Reporting Tobacco Screening ([facility] 138) Smoking Status: Never smoker Assessment and Plan Assessment and Plan (1) Crohns disease: Status: Acute Qualifiers: Gastrointestinal tract location: small and large intestine Orders: Orders: Colonoscopy Today Miscellaneous Lab Procedure Today CRP Today Erythrocyte Sed Rate Today Calprotectin, Stool Today LDH Today Miscellaneous Lab Procedure 1 Day Anti-Mitochondrial AB Today Hepatitis Panel Acute Today ANCA Today Anti-Smooth Muscle ABS Today Celiac Disease Profile Today Immunoglobulin A Today Immunoglobulin E Today Immunoglobulin G Today Immunoglobulin M Today Plan - Dr. Dasilva Friend, DO: Reevaluated his CT scan of the abdomen pelvis. His findings are consistent with acute exacerbations of Crohn's disease. What concerns me is that he may have a stricture in the terminal ileum. We will check inflammatory markers in the blood and stool. He will also need to undergo colonoscopy for evaluation of his Crohn's disease in the setting of ileum. We will also do biochemical testing for celiac disease, ANCA, smooth muscle antibody, intermittent Condry, acute hepatitis profile, LDH, stool culture, C. difficile, fecal calprotectin ESR, CRP, RAINER Coding Level of Care Code Off vis,new,level 4 Diagnoses Crohns disease K50.90 Gastrointestinal tract location: small and large intestine I have re-examined the patient. There are no clinical changes since date of exam.
--- NOTE | 2021-06-27 09:43 | OP.COLON_ITS ---
Patient Name: Maninder Zamorano Procedure Date: 06/27/2021 9:02 AM Date of : 1995 Age: 25 Procedure: Colonoscopy Indications: Crohn's disease of the small bowel Providers: Brown Gómez DO Requesting Provider: Brown Gómez DO Medicines: See the Anesthesia note for documentation of the administered medications Patient Profile: This is a 25 year old male. Refer to note in patient chart for documentation of history and physical. Last Colonoscopy: 3 years ago. Complications: No immediate complications. Procedure: Pre-Anesthesia Assessment: - Prior to the procedure, a History and Physical was performed, and patient medications and allergies were reviewed. The risks and benefits of the procedure and the sedation options and risks were discussed with the patient. All questions were answered and informed consent was obtained. Patient identification and proposed procedure were verified by the physician in the pre-procedure area. Mental Status Examination: alert and oriented. Airway Examination: normal oropharyngeal airway and neck mobility. Respiratory Examination: clear to auscultation. CV Examination: normal. Prophylactic Antibiotics: The patient does not require prophylactic antibiotics. Prior Anticoagulants: The patient has taken no previous anticoagulant or antiplatelet agents. ASA Grade Assessment: II - A patient with mild systemic disease. After reviewing the risks and benefits, the patient was deemed in satisfactory condition to undergo the procedure. The anesthesia plan was to use moderate sedation / analgesia (conscious sedation). Immediately prior to administration of medications, the patient was re-assessed for adequacy to receive sedatives. The heart rate, respiratory rate, oxygen saturations, blood pressure, adequacy of pulmonary ventilation, and response to care were monitored throughout the procedure. The physical status of the patient was re-assessed after the procedure. After I obtained informed consent, the scope was passed under direct vision. Throughout the procedure, the patient's blood pressure, pulse, and oxygen saturations were monitored continuously. The Colonoscope was introduced through the anus and advanced to the terminal ileum. The colonoscopy was performed without difficulty. The patient tolerated the procedure well. The quality of the bowel preparation was good. Moderate Sedation: Moderate (conscious) sedation was administered by the endoscopy nurse and supervised by the endoscopist. The patient's oxygen saturation, heart rate, blood pressure and response to care were monitored. Total physician intraservice time was 15 minutes. Scope In: 9:16:52 AM Scope Withdrawal Time 0 hours 13 minutes 8 seconds Scope Out: 9:32:10 AM Total Procedure Duration Time 0 hours 15 minutes 18 seconds Findings: The perianal and digital rectal examinations were normal. A few medium-mouthed diverticula were found in the sigmoid colon and descending colon. Erythema was seen in association with the diverticular opening. Wendi-diverticular erythema was seen. Purulent discharge was seen in association with the diverticular opening, consistent with diverticulitis. No other significant abnormalities were identified in a careful examination of the remainder of the colon. The terminal ileum contained a benign-appearing, intrinsic severe stenosis measuring 3 cm (in length) x 4 mm (inner diameter) that was traversed after dilation. Biopsies were taken with a cold forceps for histology. Verification of patient identification for the specimen was done. Estimated blood loss was minimal. A TTS dilator was passed through the scope. Dilation with a 15 mm colonic balloon dilator was performed. The dilation site was examined following endoscope reinsertion and showed moderate improvement in luminal narrowing. Estimated blood loss was minimal. Impression: - Moderate diverticulosis in the sigmoid colon and in the descending colon. Erythema was seen in association with the diverticular opening. Wendi-diverticular erythema was seen. Purulent discharge was seen in association with the diverticular opening, indicative of diverticulitis. - Stricture in the terminal ileum. Biopsied. Dilated. Recommendation: - Discharge patient to home. - Resume previous diet. - Use prednisone 20 mg PO once a day for 4 weeks. - Cipro (ciprofloxacin) 500 mg PO BID for 2 weeks. - Flagyl (metronidazole) 500 mg PO BID for 2 weeks. - Repeat colonoscopy in 1 year for surveillance based on pathology results. - Continue present medications. Procedure Code(s): --- Professional --- 23432, Colonoscopy, flexible; with transendoscopic balloon dilation 94022, Colonoscopy, flexible; with biopsy, single or multiple 85454, 59, Moderate sedation services provided by the same physician or other qualified health professional healthcare representative performing the diagnostic or therapeutic service that the sedation supports, requiring the presence of an independent trained observer to assist in the monitoring of the patient's level of consciousness and physiological status; initial 15 minutes of intraservice time, patient age 5 years or older CPT copyright 2017 [employer]. All rights reserved. The codes documented in this report are preliminary and upon summer nanny review may be revised to meet current compliance requirements. Brown Gómez DO 06/27/2021 9:43:26 AM This report has been signed electronically. Number of Addenda: 1 Note Initiated On: 06/27/2021 9:02 AM Addendum Number: 1 Addendum Date: 01/22/2022 6:38:40 AM MAC was used as sedation for this procedure. Brown Gómez DO 01/22/2022 6:38:44 AM This report has been signed electronically.
--- NOTE | 2021-06-27 09:44 | OP.CCLET_ITS ---
01/22/2022 Abner Sheth Do Re : Colonoscopy procedure for Maninder Pintor Meryl This procedure was performed on June. My impressions and recommendations are as follows: Impressions : - Moderate diverticulosis in the sigmoid colon and in the descending colon. Erythema was seen in association with the diverticular opening. Wendi-diverticular erythema was seen. Purulent discharge was seen in association with the diverticular opening, indicative of diverticulitis. - Stricture in the terminal ileum. Biopsied. Dilated. Recommendations : - Discharge patient to home. - Resume previous diet. - Use prednisone 20 mg PO once a day for 4 weeks. - Cipro (ciprofloxacin) 500 mg PO BID for 2 weeks. - Flagyl (metronidazole) 500 mg PO BID for 2 weeks. - Repeat colonoscopy in 1 year for surveillance based on pathology results. - Continue present medications. My findings are described in the full procedure note, which is enclosed. If I can be of further assistance, please feel free to contact me at . Sincerely, Brown Gómez DO 06/27/2021 9:43:26 AM This report has been signed electronically.
== END 2021-06-27 23:59 | disposition home or self-care (01) ==
LOC: EN 07:36 → AC 07:46
PROVIDERS: PCP Student in an Organized Health Care Education/Training Program; Referring Provider Student in an Organized Health Care Education/Training Program; Visit Provider Internal Medicine Gastroenterology
PROC: 0DJD8ZZ Inspection of Lower Intestinal Tract, Via Natural or Artificial Opening Endoscopic (ICD-10-PCS; CPT 45378; principal; 2021-06-27 08:25)
DX: K50.012 Crohn's disease of small intestine with intestinal obstruction (principal); K57.30 Diverticulosis of large intestine without perforation or abscess without bleeding
CPT/HCPCS: 45380; 45386; 88305; J7120; J2405

== ENCOUNTER → 2021-09-26 | Outpatient (CLI) | payer BC, SELFPAY ==
[2021-09-26 13:00] LABS: Erythrocyte Sedimentation Rate 6 mm/hr (0-20)
[2021-09-26 13:02] LABS: Absolute Neutrophil Count 12.2 X10^3/uL (2.0-7.7); Basophil# 0.04 X10^3/uL; Basophil% 0.3 % (0-1); Eosinophil# 0.07 X10^3/uL; Eosinophils% 0.5 % (0-5); Hematocrit 45.1 % (40-54); Hemoglobin 16.1 g/dL (13.0-16.5); Mean Corp Hgb Conc 35.7 g/dL (32-36); Mean Corpuscular Hgb 29.7 pg (27.0-32.0); Mean Corpuscular Volume 83.1 fL (80-94); Mean Platelet Vol. 9.8 fl (6.2-12.0); Monocyte# 0.96 X10^3/uL; Monocyte% 6.7 % (0-10); NRBC Flagged by Analyzer 0 % (0-5); Neutrophil # 12.22 X10^3/uL (2.7-7.7); Neutrophil % 85.1 % (47-70); Platelet Count 263 K/mm3 (150-450); RBC Distribution Width CV 12.1 % (11.6-14.6); RBC Distribution Width SD 36.6 fl (35.1-43.9); Red Blood Count 5.43 M/mm3 (4.6-6.2); White Blood Count 14.4 K/mm3 (4.4-11.0)
[2021-09-26 13:24] LABS: ALB/GLOB Ratio 1.1 RATIO (0.9-2.4); AST(SGOT) 18 U/L (15-37); Alanine Aminotransfer ALT/SGPT 39 U/L (16-61); Alkaline Phosphatase 84 U/L (45-117); Anion Gap 6 (5-15); BUN 32 mg/dL (7-18); BUN/Creat Ratio 28.1 RATIO (10-20); CRP 9.57 mg/L (0.0-3.0); Calcium,Total 9.4 mg/dL (8.5-10.1); Chloride 105 mmol/L (98-107); Creatinine, Serum 1.14 mg/dL (0.70-1.30); EST Glomerular Filtration Rate 81 mL/min (>60); Est Glom Filt Rate - Afr Amer 98 mL/min (>60); Globulin 3.6 g/dL (2.2-4.2); Glucose 99 mg/dL (74-106); Potassium 3.9 mmol/L (3.5-5.1); Protein, Total 7.6 g/dL (6.4-8.2); Sodium Level 136 mmol/L (136-145)
[2021-09-26 13:36] LABS: Rubella IgG Reactive (Nonreactive)
[2021-10-03 14:10] LABS: HEPATITIS B SURFACE AG Negative (Negative); Hep C Antibodies <0.1 s/co ratio (0.0-0.9); Hepatitis A IgM Antibody Negative (Negative); Hepatitis B Core AB IgM Negative (Negative); Immunoglobulin A 266 mg/dL (90-386); Immunoglobulin E 55 IU/mL (6-495); Immunoglobulin G 788 mg/dL (603-1613); QNTFERON TB Mitogen Value > 10.00 IU/mL (.); QNTFERON TB Nil Value 0.22 IU/mL (.); QNTFERON TB1+ Ag Value 0.23 IU/mL (.); QNTFERON TB2+ Ag Value 0.23 IU/mL (.)
[2021-10-04 17:16] LABS: B. pertussis IgG 4.44 index (0.00-0.94); Immunoglobulin M 117 mg/dL (20-172); Mumps Antibody, IgM < 0.80 AU (0.00-0.79); QNTIFERON TB Positive Criteria Negative (Negative); V-Zoster IgG (Immunity) 2988 index (Immune >165)
== END | disposition home or self-care (01) ==
LOC: LAB 11:36
PROVIDERS: PCP Student in an Organized Health Care Education/Training Program; Visit Provider Internal Medicine Gastroenterology
DX: K50.90 Crohn's disease, unspecified, without complications (principal)
CPT/HCPCS: 36415; 80053; 80074; 82784; 82785; 85025; 85652; 86140; 86480; 86735; 86762; 86787

== ENCOUNTER → 2021-10-18 | Outpatient (CLI) | payer BC, SELFPAY ==
[2021-10-18 14:26] VITALS: BP 155/74; PULSE 89; RESP 16; TEMP 36.6; O2SAT 97; BMI 34.7
[2021-10-18] MEDS: 0.9% NaCl Peripheral Flush Adult/Peds IV (14:39)
[2021-10-18] MEDS: 0.9% NaCl IVPB Med Flush (250 mL) 15 ML IV (14:40)
[2021-10-18 15:45] VITALS: BP 131/72; PULSE 76; RESP 16; TEMP 36.3; O2SAT 97
== END | disposition home or self-care (01) ==
LOC: MEDOUTP 14:15
PROVIDERS: PCP Student in an Organized Health Care Education/Training Program; Referring Provider Internal Medicine Gastroenterology; Visit Provider Internal Medicine Gastroenterology
DX: K50.90 Crohn's disease, unspecified, without complications (principal)
CPT/HCPCS: 96365; J7050; A4216; J3358

== ENCOUNTER → 2021-12-02 | Outpatient (CLI) | payer BC, SELFPAY ==
[2021-12-05 12:09] LABS: QNTFERON TB Mitogen Value > 10.00 IU/mL (.); QNTFERON TB Nil Value 0.02 IU/mL (.); QNTFERON TB1+ Ag Value 0.02 IU/mL (.); QNTFERON TB2+ Ag Value 0.02 IU/mL (.)
[2021-12-05 16:54] LABS: QNTIFERON TB Positive Criteria Negative (Negative)
== END | disposition home or self-care (01) ==
PROVIDERS: PCP Student in an Organized Health Care Education/Training Program; Referring Provider Internal Medicine Gastroenterology; Visit Provider Internal Medicine Gastroenterology
DX: K50.90 Crohn's disease, unspecified, without complications (principal)
CPT/HCPCS: 36415; 86480

== ENCOUNTER → 2022-11-17 | Outpatient (CLI) | payer BC, SELFPAY ==
--- NOTE | 2022-11-17 16:02 | RAD_ITS ---
EXAM: XR RIGHT HIP WITH PELVIS WHEN PERFORMED, 2 OR 3 VIEWS CLINICAL INDICATION: right hip pain TECHNIQUE: Two or three views of the right hip with pelvis when performed. COMPARISON: No relevant prior studies available. FINDINGS: BONES/JOINTS: Unremarkable. No displaced fracture. No destructive or sclerotic lesions. Note that overlapping bowel shadows may however obscure fine detail. Sacroiliac joint is unremarkable. No widening of the pubic symphysis. The articular structures are unremarkable. SOFT TISSUES: Unremarkable. No soft tissue swelling or gas. No findings of calcific tendinitis/bursitis. RAD/HIP, UNI W/ Pelvis 2-3 Views IMPRESSION: Negative. No acute osseous or articular abnormality. Electronically Signed: Emanuel Betts MD at 2:10 EDT ,
[2022-11-17 17:29] LABS: Erythrocyte Sedimentation Rate 7 mm/hr (0-20)
== END | disposition home or self-care (01) ==
PROVIDERS: PCP Student in an Organized Health Care Education/Training Program; Referring Provider Internal Medicine Gastroenterology; Visit Provider Internal Medicine Gastroenterology
DX: K50.90 Crohn's disease, unspecified, without complications (principal); M19.90 Unspecified osteoarthritis, unspecified site
CPT/HCPCS: 36415; 73502; 85652; 86140

== ENCOUNTER 2023-09-07 09:18 | Day surgery (SDC) | payer BC, SELFPAY ==
[2023-09-07] VITALS (10 sets, daily range): BP systolic 94–140; BP diastolic 53–90; PULSE 78–97; RESP 16–17; TEMP 36.3–36.7; O2SAT 92–98; BMI 38.0
--- NOTE | 2023-09-07 09:34 | EKG12_ITS ---
Test Reason : PREOP Blood Pressure : / mmHG Vent. Rate : 079 BPM Atrial Rate : 079 BPM P-R Int : 168 ms QRS Dur : 102 ms QT Int : 378 ms P-R-T Axes : 026 098 026 degrees QTc Int : 433 ms Normal sinus rhythm with sinus arrhythmia Rightward axis Borderline ECG When compared with ECG of 14-APR-2021 09:14, No significant change was found Confirmed by López Sierra ([id number]), news videotape editor LATISHA CID ([id number]) on 09/16/2023 9:03:08 AM Referred By: López Lares Confirmed By:López Sierra
[2023-09-07] MEDS: Lactated Ringers 1,000 ML 15 ML IV ×3 (10:08→14:11)
[2023-09-07 10:15] LABS: Hematocrit 46.1 % (40-54); Hemoglobin 15.8 g/dL (13.0-16.5); Mean Corp Hgb Conc 34.3 g/dL (32-36); Mean Corpuscular Hgb 28.4 pg (27.0-32.0); Mean Corpuscular Volume 82.9 fL (80-94); Mean Platelet Vol. 9.8 fl (6.2-12.0); Platelet Count 269 K/mm3 (150-450); RBC Distribution Width CV 12.4 % (11.6-14.6); RBC Distribution Width SD 37.4 fl (35.1-43.9); Red Blood Count 5.56 M/mm3 (4.6-6.2); White Blood Count 8.1 K/mm3 (4.4-11.0)
--- NOTE | 2023-09-07 11:00 | GALL_PTH ---
PATIENT: BERKLEY AQUINO Jr. [place] [facility] [place][id number] AGE/SX: 28/M ROOM: RE09/07/[address]: Dr. López Lares MD : 1995 BED: DIS: 09/07/2023 SPEC #: [id number] RECD: 09/07/23 13:36 STATUS: ABRAHAM JIANG #: [id number] SHANNON: 09/07/23 11:[address]: López Lares DEPT: SURGICAL PATHOLOGY RECD BY: Varsha Love ENTERED: 09/07/23 13:56 SP TYPE: LIZZ FOX DR: Dr. Abner Sheth DO Tissues: A - Gallbladder, NOS B - Liver, NOS Procedures: Surgery Specimen Level III Surgery Specimen Level V HEADER OPERATION: Laparoscopic, cholecystectomy with IOC, liver biopsy PRE-OP DIAGNOSIS: Abnormal biliary HIDA scan, elevated LFT's TISSUE SUBMITTED: A- Gallbladder, B- Liver biopsy MICROSCOPIC DIAGNOSIS A. Gallbladder, cholecystectomy: Chronic cholecystitis. See comment. B. Liver, core biopsy: Liver parenchymal tissue with extensive macro- and microvesicular steatosis. See microscopic description and comment. YU/ 09/08/23 COMMENT A. No stones are identified in the container or in the gallbladder. Correlation with clinical, radiologic findings and appropriate follow up are necessary. MICROSCOPIC DESCRIPTION Slides are reviewed. B. The specimen shows liver parenchymal tissue with preserved lobular architecture. Hepatocytes show macro- and microvesicular steatosis. Significant lobular inflammation is not seen. Portal areas are essentially unremarkable. Iron stains do not show any iron deposition. Reticulate stain highlights preserved lobular architecture. Trichrome stain does not show any increased portal and periportal fibrosis. PAS stain with and without diastase do not show any abnormal accumulation of protein. All the stains are performed with appropriate matched controls. GROSS DESCRIPTION A. Received is one container labeled with the patient's name and designated gallbladder. The specimen consists of a gallbladder measuring 5.6 x 3.0 x 1.2 cm. The external surface is smooth and glistening. Focally, it is granular, hemorrhagic and contains cautery artifact. The lumen of the gallbladder contains light prieto mucoid bile. No calculi are identified. The mucosa is bile-stained and without any mass lesions. The gallbladder wall averages 0.2 cm in thickness and is free of mass lesions. Automobile Bumper Straightener sections of the gallbladder and the cystic duct at margin of resection are submitted in one cassette. B. Received in fixative is one container labeled with the patient's name and designated Liver biopsy. The specimen consists of multiple irregular and elongated fragments of prieto tissue that in aggregate measure 1.3 x 0.3 x <0.1 cm. The specimen is totally submitted in one cassette. JEROME/ 09/07/23 TC:3 CPT: 45369, 12415,38267v2
--- NOTE | 2023-09-07 11:27 | PCM.HP.BLA ---
History and Physical Date of Admission: 09/07/23 Date of Service: 07/31/23 MR#: [id number] Acct: [id number] Name: BERKLEY AQUINO Jr. Rep #: [id number] : 1995 Provider: Dr. López Lares MD Age/Sex: 27/M Location: [facility] [place] Status: Signed with Addenda ADDENDUM by Dr. López Lares MD on 07/31/23 at 1809 Intake Chief Complaint: Gall bladder sludge Allergies No Known Allergies Allergy (Verified 07/31/23 14:07) Medications prednisone 20 mg tablet See Rx Instructions .Route .COMPLEX #30 tabs 10/24/21 [Rx Confirmed 07/31/23] ustekinumab 90 mg/mL subcutaneous syringe (Stelara) 90 mg subcut Q8W #1 mL 10/08/22 [Rx Confirmed 07/31/23] dicyclomine 10 mg capsule 10 mg PO BID PRN abdominal pain #45 caps 04/30/23 [Rx Confirmed 07/31/23] lisinopril 10 mg tablet 10 mg PO DAILY 07/31/23 [History Confirmed 07/31/23] Assessment and Plan Assessment and Plan (1) Abnormal biliary HIDA scan: Status: Acute Comment: Patient is a 27-year-old male who has an extensive past GI history inclusive of diagnoses IBD (Crohn's), IBS, diverticulitis, and now presents with evidence of abnormal HIDA imaging showing a significantly depressed ejection fraction at 9% as well as abnormal LFTs (namely ALT). Morphologically, his gallbladder is normal-appearing on ultrasound. He was previously evaluated by surgery but shares that no surgery was recommended at that time. He was prompted by his primary care provider to seek a second opinion. I discussed with Mr. Aquino at some length that my experience with biliary dyskinesia is that patient's generally do see cholecystectomy at some point in the future because the nuclear medicine testing does indicate suboptimal function of the gallbladder and they go on to have further difficulties. I also shared that I could make no guarantees on his abdominal pain, but recommended we consider an elective cholecystectomy to eliminate this as a cause for his discomfort as well as hopefully avoid future difficulties. Upon hearing Mr. Aquino's interest in surgery I then proceeded with outlining the procedure?specific risks and postoperative expectations. (2) Elevated LFTs: Status: Acute Comment: Patient has had 3 months in a row of elevated ALT. It has been suggested this could be related to his use of Stelara. He also reports an approximately 100 pound weight gain in the last 4 years. This fact makes a diagnosis of NAFLD a possible etiology as well. I do not see this is related to his gallbladder disease as there is no indication of a cholestatic pattern or stone?related inflammation. Unfortunately patient has not yet been evaluated by gastroenterology for this issue, but I did discuss with patient's interactive media marketing director, Dr. Gómez, the possibility of performing a concurrent liver biopsy at the time of a cholecystectomy as a means of facilitating his workup for these abnormal LFTs. Dr. Gómez reports that this would be helpful and thus we will plan for a Darryl-Cut biopsy at the same time as patient's cholecystectomy. Addendum: In review of patient's imaging reports fatty liver infiltration was noted on his ultrasound and was discussed with his PCP, Dr. Sheth. 07/31/231808 <Electronically signed by López Lares MD> Date López Lares MD cc: Dr. Abner Sheth DO; Brown Gómez DO ~* Signed Intake Vital Signs 10/18/2213:26 07/30/2413:06 Height 6 ft 2 in 6 ft 2 in Weight: 303 lb BMI 38.9 BP 147/82 H Blood Pressure Location Rt brachial Position Sitting Respiration 18 Pulse 94 Pulse Source Monitor Temp 97.1 F L Temp Source Temporal Pulse Oximetry (%) 94 Oxygen Delivery Method room air Intake Visit Reasons: Gall Bladder Sludge Chief Complaint: Gall bladder sludge [employer] Consultant Required: No Is patient in pain?: No Allergies No Known Allergies Allergy (Verified 07/31/23 14:07) Medications prednisone 20 mg tablet See Rx Instructions .Route .COMPLEX #30 tabs 10/24/21 [Rx Confirmed 07/31/23] ustekinumab 90 mg/mL subcutaneous syringe (Stelara) 90 mg subcut Q8W #1 mL 10/08/22 [Rx Confirmed 07/31/23] dicyclomine 10 mg capsule 10 mg PO BID PRN abdominal pain #45 caps 04/30/23 [Rx Confirmed 07/31/23] lisinopril 10 mg tablet 10 mg PO DAILY 07/31/23 [History Confirmed 07/31/23] [facility] Medical History (Updated 07/31/23 @ 18:[address] López Lares MD) Abdominal pain Alcohol use Arthritis Crohn's disease Diarrhea Diverticulitis Gallbladder sludge Gastric reflux History of diverticulitis History of echocardiogram History of GI bleed History of steroid therapy Hypertension Restless legs Surgical History History of placement of ear tubes Hx of colonoscopy Family History Mother Arthritis Diabetes HypertensionFather Hypertension Social History (Updated 07/31/23 @ 14:06 by Kenia Brock) Smoking Status: Never smoker alcohol intake: never substance use type: does not use HPI HPI HPI: Patient is a 27-year male who presents for consultation regarding possible gallbladder disease. They are referred for surgical consultation from Dr. Sheth. Patient confirms a diagnosis of Crohn's disease and shares that before taking Stelara he would go into the hospital at least 1 time per year for a Crohn's flare. He shares that his flares are now smaller but more frequent. He then confesses that he is uncertain what constitutes a Crohn's?related symptom and what may be due to other diagnoses. He makes his confession after a visit to gastroenterology where he described pain discomfort lasting approximately 20 minutes at a time and was told this is more likely attributable to irritable bowel syndrome. For this diagnosis he is prescribed budesonide. He does share that 90% of the time his bowel movements are diarrhea and this only increases in frequency with a Crohn's flare. He notes that his pain during a Crohn's flare is usually on the right lower abdomen. He denies any specific time of day or relationship to eating. Mr. Aquino shares that the workup for his gallbladder began after complaining to his PCP of some chest pain and crampy stomach issues. He reports that Dr. Watkins took a comprehensive approach to the symptoms and performed some thyroid testing as well as liver function testing. The latter found that his LFTs were elevated and this led to a gallbladder ultrasound which found evidence of sludge. The ultrasound was ultimately followed up [facility]23 that was performed with CCK stimulation. Results of this study were abnormal and showed an ejection fraction of 9%. Patient also notes that he had increased pain following injection of the CCK. Patient's ALT has been the elevated enzymes over the last 3 months and has gone from 94-80-71. He shares that he spent some of last month dieting and lost 15 pounds because he has become very upset about his weight. He shares as recently as 2019 he was just 200 pounds. 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 Mr. Aquino reports that he previously saw surgery for his gallbladder but felt as though that provider was disinterested in his case and did not recommend surgery. ROS General General: Yes weight change and fatigue; No appetite, colon cancer, breast cancer or weakness HEENT HEENT: No difficulty swallowing, eye injury, eye surgery, swollen glands or hoarseness Endo Endocrine: No thyroid disease, diabetes mellitus, thyroid cancer, Hair loss, heat intolerance or cold intolerance Skin Skin: No rash or changing moles Breast Breast: No left breast lump, right breast lump, nipple discharge, breast pain, abnormal mammogram, abnormal US or breast enlargement Musc Musculoskeletal: Yes arthritis and rheumatoid arthritis; No back problems, gout or joint pain Cardio Cardiovascular: Yes high blood pressure; No murmur, pacemaker, heart disease, atrial fibrillation, heart attack, heart stent, palpitations, shortness of breat with exertion or chest pain Psych Psychiatric: No depression, anxiety or hearing voices Resp Respiratory: No shortness of breath, Yes sleep apnea, No cough, No COPD, No asthma, No emphysema and No wheezing Gastro Gastrointestinal: Yes abdominal pain, No nausea or vomiting, Yes diarrhea, No constipation, No blood in stool, Yes acid reflux, No hemorrhoids, No ulcers, Yes gallbladder problem and No black,tarry stools Additional Details: Gallbladder sludge Deshaun Hematologic: No blood thinners, No blood disorders, No bleeding, No anemia and No blood clots Neuro Neurologic: No system reviewed and no additional complaints, except as documented, No as per HPI, No abnormal gait, No abnormal hearing, No abnormal movements, No abnormal speech, No behavioral changes, No burning sensations, No confusion, No convulsions, No disequilibrium, No dizziness, No localized weakness, No frequent falls, No headache(s), No lack of coordination, No loss of vision, No memory loss, No numbness, No other visual disturbances, No radicular pain, No restless legs, No sensory deficit, No syncope, No tingling, No tremor(s), No weakness and No other Exam Const General: cooperative Orientation: alert, awake and oriented x3 Resp Effort & Inspection: normal respiratory effort GI Other: Hirsute, no scars, obese, nondistended, soft, mild tenderness to palpation along the right abdominal quadrants and epigastrium. Negative West sign. Assessment and Plan Assessment and Plan (1) Abnormal biliary HIDA scan: Status: Acute Comment: Patient is a 27-year-old male who has an extensive past GI history inclusive of diagnoses IBD (Crohn's), IBS, diverticulitis, and now presents with evidence of abnormal HIDA imaging showing a significantly depressed ejection fraction at 9% as well as abnormal LFTs (namely ALT). Morphologically, his gallbladder is normal-appearing on ultrasound. He was previously evaluated by surgery but shares that no surgery was recommended at that time. He was prompted by his primary care provider to seek a second opinion. I discussed with Mr. Aquino at some length that my experience with biliary dyskinesia is that patient's generally do see cholecystectomy at some point in the future because the nuclear medicine testing does indicate suboptimal function of the gallbladder and they go on to have further difficulties. I also shared that I could make no guarantees on his abdominal pain, but recommended we consider an elective cholecystectomy to eliminate this as a cause for his discomfort as well as hopefully avoid future difficulties. Upon hearing Mr. Aquino's interest in surgery I then proceeded with outlining the procedure?specific risks and postoperative expectations. Plan: Laparoscopic cholecystectomy with intraoperative cholangiography (2) Elevated LFTs: Status: Acute Comment: Patient has had 3 months in a row of elevated ALT. It has been suggested this could be related to his use of Stelara. He also reports an approximately 100 pound weight gain in the last 4 years. This fact makes a diagnosis of NAFLD a possible etiology as well. I do not see this is related to his gallbladder disease as there is no indication of a cholestatic pattern or stone?related inflammation. Unfortunately patient has not yet been evaluated by gastroenterology for this issue, but I did discuss with patient's interactive media marketing director, Dr. Gómez, the possibility of performing a concurrent liver biopsy at the time of a cholecystectomy as a means of facilitating his workup for these abnormal LFTs. Dr. Gómez reports that this would be helpful and thus we will plan for a Darryl-Cut biopsy at the same time as patient's cholecystectomy. Plan: Core needle biopsy of the liver during laparoscopic cholecystectomy as discussed above I have examined the patient and the H&P has been reviewed. There are no clinical changes since date of exam. Patient confirms that his health has been status quo. He does note that his abdomen is a little bit crampy today. He believes this is likely related to his underlying Crohn's disease. Procedure expectations were reviewed?to include performance of a liver biopsy. Patient denies any questions related to the procedure. Proceed to the OR for laparoscopic cholecystectomy operative cholangiography and Darryl-Cut liver biopsy.
[2023-09-07] MEDS: Cefazolin 3 GM in 0.9% Normal Saline (100mL Bag) 100 ML IV (11:33)
--- NOTE | 2023-09-07 12:18 | RAD_ITS ---
INDICATION: PAIN EXAMINATION/TECHNIQUE: 1 cine run presented for evaluation. Total Fluoroscopic Time: 18 seconds. Radiation dosage index: 18.93 mGy. COMPARISON: No relevant prior comparison study available FINDINGS: No filling defects are identified. There is no biliary ductal dilatation. There is free passage into the duodenum. RAD/Cholangiogram/ O R,Initial IMPRESSION: No filling defects are identified. Electronically Signed: Curt Jane MD at 14:06 EDT ,
[2023-09-07] MEDS: Bupiv/Epi 0.25% 30 ML Vial (12:56)
--- NOTE | 2023-09-07 12:59 | OP.PCM_ITS ---
Report of Operation Date of Procedure: 09/07/23 Pre-Operative Diagnosis: 1. Biliary dyskinesia 2. History of abnormally elevated LFTs Post-Operative Diagnosis: 1. Biliary dyskinesia with chronic cholecystitis 2. History of abnormally elevated LFTs Surgery/Procedure Performed:: 1. Laparoscopic cholecystectomy with intraoperative cholangiogram 2. Core needle liver biopsy Description of Surgical Findings:: ? Gross evidence of hepatic steatosis and hepatomegaly ? Gross evidence of chronic cholecystitis ? Cholangiogram showing small caliber intra and extrahepatic biliary ducts with a long cystic duct and normal flow of contrast through the common bile duct into the duodenum Surgeon: López Lares skinning machine feeder: Justen Jose Type of Anesthesia: General/Supplemental Anesthesiologist: Clay Powell Specimen's removed: 1. Liver biopsy cores (x 2) 2. Gallbladder Estimated Blood Loss (mL): 15 Description of Procedure: After proper identification in the preoperative holding area the patient was brought to the operating room where he was positioned supine on the operating room table. Preoperatively SCDs were placed and antibiotics were administered. General anesthesia was then induced. Patient's abdomen was prepped and draped in usual sterile fashion. A formal timeout was conducted to confirm both patient and the procedure. Procedure was begun with a supraumbilical incision which was extended deeply down to the level of the fascia. The fascia was elevated and incised, as well as the peritoneum. A finger sweep was performed to ensure there were no underlying adhesions and a 12 mm balloon trocar was inserted. Pneumoperitoneum was established at 15 mmHg. Three additional trocars (all 5 mm) were placed in the epigastrium and in the right upper quadrant. Inspection of the peritoneum revealed no inadvertent injury to the viscera below. The gallbladder was visualized with evidence of chronic inflammation and there were several thin adhesions of the omentum to the gallbladder body. Once these adhesions were taken down the gallbladder fundus was then grasped and elevated cephalad. Then, using careful dissection the peritoneum was opened and the structures of the hepatocystic triangle were delineated. Once the critical view of safety was obtained, the cystic duct was singly clipped and partially divided with a ductotomy. Using an [place] clamp, a cholangiocatheter was fed into the proximal segment of the cystic duct and clamped into place. Under fluoroscopy a cholangiogram was then obtained showing a rather long but diminutive caliber cystic duct flowing into a common bile duct with unobstructed antegrade flow of contrast into the duodenum. There was also retrograde flow through the common hepatic duct into the right and left hepatic ducts. Satisfied with this result, the cholangiocatheter was withdrawn and the proximal cystic duct was sealed with clips and the cystic duct was completely transected. The same process was used for the cystic artery. The gallbladder was then removed from the gallbladder fossa with the use of electrocautery. Selective electrocautery was used to obtain hemostasis in the gallbladder fossa. The gallbladder was placed in an Endo Catch bag and removed from the peritoneum. Morison's pouch was irrigated and the effluent was suctioned free of the peritoneum. Hemostasis was again confirmed. Our liver biopsy was obtained after introducing a Darryl-Cut core needle biopsy device via a stab incision through the right upper quadrant and guiding it to the anterior surface of the fourth segment of the liver. 2 cores were obtained in succession and the minute amount of bleeding that resulted in was promptly cauterized. After inspecting the gallbladder fossa for hemostasis the fascia of the supraumbilical port site was closed under laparoscopic visualization using a #1 PDS and Jr Mohr suture passer. The pneumoperitoneum was evacuated and the fascia of the 12 mm port site was tied. A total of 30 mL of anesthetic was injected at the port sites for postoperative pain control. The skin of each port site was then closed in subcuticular fashion using 4-0 Monocryl. Steri- Strips and bandages were applied as dressings. Patient tolerated the procedure well without any apparent complications. On emergence from their anesthetic the patient was taken to PACU for ongoing recovery. Grafts/Implants Used: None Complications None Admit VTE Documentation VTE Mechan Device Prophylaxis: SCD's
--- NOTE | 2023-09-07 13:02 | DCINST_ITS ---
Discharge Instructions Diet Discharge Diet: No restrictions Activity Discharge Activity: May Not Drive (No driving while using narcotic pain medication) and May Shower (Postoperative day 1) May shower in (days): 1 Ice area for (Minutes): 20 Lifting Restrictions: No lifting greater than 15 pounds for 2 weeks after surgery Dressing / Incision Call your doctor if your incision/area has: Continuous Slow Oozing, Increased Pain/ Swelling, Increased Redness, Foul Smelling Discharge and Swelling at the incision site Call your doctor if you observe: Fever of 101 or Higher Remove Dressing in: 1 day (Please leave Steri-Strips intact until they fall off spontaneously or are taken off at your follow-up visit) Cleanse incision/area with: Soap & Water Follow Up Care Please Follow Up With: López Lares MD When: 7-10days postop Test Results: Test results from this visit will be discussed in further detail at your follow- up appointment, if applicable. Discharge Plan Admission Primary Reason for Your Visit: Gallbladder removal Attending Provider: López Lares Primary Care Provider: Abner Sheth Instructions Print Language: Bolivian Discharge Orders/Prescriptions Prescriptions: New oxycodone 5 mg tablet 5 mg PO Q6H PRN (Reason: pain) 5 Days Qty: 14 0RF Continued lisinopril 10 mg tablet 10 mg PO DAILY Stelara 90 mg/mL syringe 90 mg subcut Q8W Qty: 1 6RF Referrals / Follow Up: Abner Sheth DO [Primary Care Provider] - Disposition Disposition (needs filled in before D/C Order can be placed): Home, Self Care
[2023-09-07] MEDS: oxyCODONE 5 MG Tablet PO (14:50)
[2023-09-07] MEDS: Acetaminophen 500 MG Tablet 1000 MG PO (16:16)
== END 2023-09-07 16:30 | disposition home or self-care (01) ==
LOC: SDC 09:22 → AC 09:24
PROVIDERS: Anesthesiology; PCP Student in an Organized Health Care Education/Training Program; Referring Provider Surgery; Visit Provider Surgery
PROC: (CPT 47610; principal; 2023-09-07 10:40)
DX: K82.8 Other specified diseases of gallbladder (principal); K50.90 Crohn's disease, unspecified, without complications; R79.89 Other specified abnormal findings of blood chemistry; K81.1 Chronic cholecystitis; R74.01 Elevation of levels of liver transaminase levels; I10 Essential (primary) hypertension; K76.0 Fatty (change of) liver, not elsewhere classified; Z87.19 Personal history of other diseases of the digestive system; Z96.22 Myringotomy tube(s) status; G47.30 Sleep apnea, unspecified; Z99.89 Dependence on other enabling machines and devices
CPT/HCPCS: 47563; 47000; 00790; 74300; 76000; 85027; 88304; 88307; 93005; J7120; J2405

== ENCOUNTER 2024-06-10 12:47 | Day surgery (SDC) | payer BC, SELFPAY ==
--- NOTE | 2024-06-09 12:56 | PAT.ANESEVAL ---
Pre-Assessment Diagnosis/Proposed Procedure Planned Operative Procedure(s): COLONOSCOPY Anesthesia History Anesthesia History - millinery blocker: Anesthesia History - millinery blocker Hx Hospitalization No 06/09/24 09:11 Any Problems With Anesthesia No 06/09/24 09:11 Cholinesterase deficiency No 06/09/24 09:11 You/Your Family Experience No 06/09/24 09:11 fever (hyperthermia) with Relationship Recent Exposure to Contagious No 09/07/23 10:08 Disease Does patient have nerve No 06/09/24 09:11 stimulator Patient instructed to have device shut off --Does patient have Pacemaker or ICD? When Was Last Pacemaker Check QUESTION #4 FULL TEXT: You/Your Family Experience fever (hyperthermia) with Anesthesia Last Oral Intake Last Oral intake: Last Oral Intake NPO since Meds taken in AM with sips of water? Meds patient instructed to take am of surgery PONV PONV - millinery blocker: PONV - millinery blocker Female No 06/09/24 09:11 HX of Motion Sickness No 06/09/24 09:11 HX of N/V After Surgery No 06/09/24 09:11 Non-Smoker Yes 06/09/24 09:11 Duration of Surgery greater No 06/09/24 09:11 than 60 minutes Number of Risk Factors 1 06/09/24 09:11 PONV Score Low Risk 06/09/24 09:11 Height & Weight Height & Weight: Anesthesia: Height & Weight Height 6 ft 2 in 09/07/23 10:08 Respiratory Assessment Respiratory Assessment - millinery blocker: Respiratory Tract Infection Hx - millinery blocker Hx Respiratory Tract Infection No 06/09/24 09:11 STOP Sleep Apnea STOP Sleep Apnea - millinery blocker: STOP Sleep Apnea - millinery blocker Hx Hypertension Yes: PER PT, CONTROLLED ON 06/09/24 09:11 MEDS Hx Sleep Apnea Yes 06/09/24 09:11 CPAP Yes 06/09/24 09:11 BIPAP No 06/09/24 09:11 Do you snore loudly (louder than talking or can be heard Do you often feel tired/ fatigued/ sleepy during daytime? Has anyone observed you stop breathing during sleep? STOP Results Positive 06/09/24 09:11 QUESTION #5 FULL TEXT : Do you snore loudly (louder than talking or can be heard through closed doors)? 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 Specify any problems Hx of Preganancy in last 3 N/A 06/09/24 09:11 Months Nurse Filling Out Transfusion MGRIFFITH 06/09/24 09:11 & Questions: Date: 06/09/24 06/09/24 09:11 Time: 09:12 06/09/24 09:11 Patient unable to answer at this time (ie. confused, unrespo /Reproduction History /Reproductive History - millinery blocker: /Reproductive Hx- millinery blocker Hx Now Gestational Age (in weeks): EDC: Hx Hx Para Hx Section SAB No 09/02/23 11:44 [facility] Medical History (Updated 06/09/24 @ 09:24 by Nessa Vaughan) High cholesterol Sleep apnea Chronic cough Non-smoker Fatty liver Vertigo Heartburn CPAP (continuous positive airway pressure) dependence History of edema History of stress test Diarrhea Abdominal pain Gallbladder sludge Arthritis Restless legs History of GI bleed History of diverticulitis History of echocardiogram Hypertension Diverticulitis Crohn's disease Home Medications ?Medication ?Instructions ?Recorded ?Last Taken ?Type lisinopril 10 mg tablet 10 mg PO DAILY 07/31/23 Unknown History ustekinumab 90 mg/mL subcutaneous 90 mg subcut Q8W #1 mL 10/22/23 Unknown Rx syringe (Stelara) colestipol 1 gram tablet 2 g (2 x 1 gram) PO BID 30 days 04/04/24 Unknown Rx #120 tabs Allergy/AdvReac Type Severity Reaction Status Date / Time No Known Allergies Allergy Verified 06/09/24 09:09 Family History Mother Arthritis Diabetes Hypertension Father Hypertension Surgical History (Updated 09/14/23 @ 09:27 by Sonja Temple) Status post laparoscopic cholecystectomy Hx of colonoscopy History of placement of ear tubes Social History (Updated 07/31/23 @ 14:06 by Kenia Brock) Smoking Status: Never smoker alcohol intake: never substance use type: does not use Audit: Pertinent Findings Pertinent Findings EKG Perinent findings: September 07, 2023. Normal sinus rhythm with sinus arrhythmia. Stress test pertinent findings: June 15, 2023. Negative for ischemia. 13.4 METS. Echo (EF%) pertinent findings: October 16, 2022. Ejection fraction of 60 to 65%. Recommendation Anesthesia Recommendation Anesthesia recommendation: OPTIMIZED for anesthesia
[2024-06-10] VITALS (9 sets, daily range): BP systolic 115–139; BP diastolic 80–108; PULSE 75–92; RESP 12–18; TEMP 36.2–37.2; O2SAT 92–94; BMI 37.2
--- NOTE | 2024-06-10 13:45 | COLBX_PTH ---
PATIENT: BERKLEY AQUINO Jr. LOC: EN U#:[id number] AGE/SX: 28/M ROOM: RE06/10/[address]: Dr. Brown Gómez DO : 1995 BED: DIS: 06/10/2024 SPEC #: [id number] RECD: 06/10/24 16:42 STATUS: ABRAHAM REDiamante #: [id number] SHANNON: 06/10/24 13:[address]: Brown Gómez DEPT: SURGICAL PATHOLOGY RECD BY: Varsha Love ENTERED: 06/13/24 09:34 SP TYPE: COLON BX OTHR DR: Dr. Abenr Sheth DO Tissues: Ileum, NOS Procedures: Surgery Specimen Level IV HEADER OPERATION: Colonoscopy, biopsy, dilatation PRE-OP DIAGNOSIS: Crohn's disease TISSUE SUBMITTED: Terminal ileum biopsy MICROSCOPIC DIAGNOSIS Terminal ileum, biopsy: Focal chronic active ileitis with focal erosion. See comment. 06/14/2024 COMMENT The history of Crohn's disease is noted. There is focal crypt distortion. No definitive granulomata are identified. There is focal acute and chronic inflammation with erosion. Clinical correlation is necessary. MICROSCOPIC DESCRIPTION Slides are reviewed. GROSS DESCRIPTION Received in fixative is one container labeled with the patient's name and designated Terminal ileum biopsy. The specimen consists of multiple irregular fragments of light prieto soft tissue that in aggregate measure 2.5 x 0.7 x 0.1 cm. The specimen is totally submitted in one cassette. MS/mr 06/13/2024 TC:3 CPT:55580
--- NOTE | 2024-06-10 13:53 | PRE.ANES_ITS ---
ASA Classification* ASA Classification ASA Classification: 2 Assessment & Plan Anesthesia* Anesthesia Assessment Anesthesia Assessment: Discussed sedation and/or anesthesia options, risks, benefits, and alternatives with patient/parents/legal guardian/POA. Questions invited. The patient/parents/legal guardian/POA seems to understand and agrees to proceed with anesthesia plan. Reviewed the physical assessment, medical history, allergy history and patient home medications list prior to surgery/procedure/anesthetic and documented any changes. Performed airway and anesthesia risk assessments. Anesthesia Type Anesthesia Type: MAC History Source History Obtained from:: Patient and Chart Anesthesia Focused Assessment* Temperature: 97.8 F Pulse Rate: 92 Blood Pressure: 136/91 Respiratory Rate: 16 Pulse Ox: 94 Oxygen Delivery Method: Room Air Airway Assessment Mouth opens: >3 cm Mallampati Score: IV Teeth Condition: Intact Neck Range of motion (ROM): Limited ROM (Somewhat decreased extension. Full tesfaye.) Focused Labs Anesthesia Preop lab: CBC WBC 8.1 K/mm3 (4.4-11.0) 09/07/23 10:09/07/23 RBC 5.56 M/mm3 (4.6-6.2) 09/07/23 10:04 09/07/23 Hgb 15.8 g/dL (13.0-16.5) 09/07/23 10:09/07/23 Hct 46.1 % (40-54) 09/07/23 10:04 09/07/23 Plt Count 269 K/mm3 (150-450) 09/07/23 10:04 09/07/23 CHEMISTRY Potassium 3.9 mmol/L (3.5-5.1) 09/26/21 11:56 09/26/21 Sodium 136 mmol/L (136-145) 09/26/21 11:56 09/26/21 BUN 32 mg/dL (7-18) H 09/26/21 11:56 09/26/21 Creatinine 1.14 mg/dL (0.70-1.30) 09/26/21 11:56 09/26/21 Glucose 99 mg/dL (74-106) 09/26/21 11:56 09/26/21 COAG PT 13.9 SECONDS (11.9-14.4) 10/23/12 03:05 3 Pre-Assessment Diagnosis/Proposed Procedure Planned Operative Procedure(s): COLONOSCOPY Anesthesia History 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 When Was Last Pacemaker Check QUESTION #4 FULL TEXT: You/Your Family Experience fever (hyperthermia) with Anesthesia Last Oral Intake Last Oral intake: Last Oral Intake NPO since 09:00 06/10/24 13:15 Meds taken in AM with sips of No 06/10/24 13:15 water? Meds patient instructed to take am of surgery Any additional information?: Yes NPO since: 09:00 (Patient finished prep at 9 AM.) PONV PONV - aircraft maintenance supervisor: PONV - aircraft maintenance supervisor Female No 06/09/24 09:11 HX of Motion Sickness No 06/09/24 09:11 HX of N/V After Surgery No 06/09/24 09:11 Non-Smoker Yes 06/09/24 09:11 Duration of Surgery greater No 06/09/24 09:11 than 60 minutes Number of Risk Factors 1 06/09/24 09:11 PONV Score Low Risk 06/09/24 09:11 Height & Weight Height & Weight: Anesthesia: Height & Weight Height 6 ft 2 in 06/10/24 13:15 Weight: 131.542 kg 06/10/24 13:15 Body Mass Index (BMI) 37.2 06/10/24 13:15 Respiratory Assessment Respiratory Assessment - aircraft maintenance supervisor: Respiratory Tract Infection Hx - aircraft maintenance supervisor Hx Respiratory Tract Infection No 06/09/24 09:11 STOP Sleep Apnea STOP Sleep Apnea - aircraft maintenance supervisor: STOP Sleep Apnea - aircraft maintenance supervisor Hx Hypertension Yes: PER PT, CONTROLLED ON 06/09/24 09:11 MEDS Hx Sleep Apnea Yes 06/09/24 09:11 CPAP Yes 06/09/24 09:11 BIPAP No 06/09/24 09:11 Do you snore loudly (louder than talking or can be heard Do you often feel tired/ fatigued/ sleepy during daytime? Has anyone observed you stop breathing during sleep? STOP Results Positive 06/09/24 09:11 QUESTION #5 FULL TEXT : Do you snore loudly (louder than talking or can be heard through closed doors)? 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 Specify any problems Hx of Preganancy in last 3 N/A 06/09/24 09:11 Months Nurse Filling Out Transfusion MGRIFFITH 06/09/24 09:11 & Questions: Date: 06/09/24 06/09/24 09:11 Time: 09:12 06/09/24 09:11 Patient unable to answer at this time (ie. confused, unrespo /Reproduction History /Reproductive History - aircraft maintenance supervisor: /Reproductive Hx- aircraft maintenance supervisor Hx Now Gestational Age (in weeks): EDC: Hx Hx Para Hx Section SAB No 09/02/23 11:44 [facility] Medical History High cholesterol Sleep apnea Chronic cough Non-smoker Fatty liver Vertigo Heartburn CPAP (continuous positive airway pressure) dependence History of edema History of stress test Diarrhea Abdominal pain Gallbladder sludge Arthritis Restless legs History of GI bleed History of diverticulitis History of echocardiogram Hypertension Diverticulitis Crohn's disease Home Medications ?Medication ?Instructions ?Recorded ?Last Taken ?Type lisinopril 10 mg tablet 10 mg PO DAILY 04/05/24 Unkn own History ustekinumab 90 mg/mL subcutaneous 90 mg subcut Q8W #1 mL 10/22/23 Unknown Rx syringe (Stelara) colestipol 1 gram tablet 2 g (2 x 1 gram) PO BID 30 d ays 04/04/24 Unknown Rx #120 tabs Allergy/AdvReac Type Severity Reaction Status Date / Time No Known Allergies Allergy Verified 06/10/24 13:14 Family History Mother Arthritis Diabetes Hypertension Father Hypertension Surgical History Status post laparoscopic cholecystectomy Hx of colonoscopy History of placement of ear tubes Social History Smoking Status: Never smoker alcohol intake: never substance use type: does not use Review of Systems (Anesthesia) ROS Narrative System reviewed and no additional complaints, except as documented.
--- NOTE | 2024-06-10 14:59 | PCM.HP.STD ---
HPI - General General Date of Admission: 06/10/24 Date of Service: 06/10/24 Chief Complaint: Crohns disease HPI Narrative BERKLEY AQUINO, is a 28 M who presents for colonoscopy for surveillance of Crohn's disease. Prior workup: ? CT abd/pel 04.11.21 Findings consistent with acute flare of Crohn's disease affecting the terminal ileum. *I established 05.13.21 for evaluation of previously diagnosed Crohn?s disease; diagnosed at age 6 with acute flares requiring hospitalization. Believes he is allergic to dicyclomine, attempted Imuran/pentasa until age 13/14 then started Budesonide, all medication stopped at age 14 and has been without maintenance medications until then. Family history includes sister with Crohn?s disease. Colonoscopy .07.16 moderate diverticulosis with erythema, per-diverticular erythema, purulent discharge consistent with diverticulitis; terminal ileum stricture with active Crohn?s disease, ulceration, acute and chronic inflammation and granulation tissue reaction, dilated with 15mm colonic balloon. Start prednisone 20mg QD, cipro 500mg BID, flagyl 500mg BID. OV 09.09.21 doing well since colonoscopy without GI symptoms requiring attention. OV 02.24.22 Feels he is doing well overall. While in [place] he was having difficulty with diarrhea with blood and abdominal pain. He has gained 20-30lbs in the last 2-3 months. OV ..23 Feels he is doing well overall; but is having some R/L abdominal pain, stabbing that self-resolves after a few minutes. Reports that with weight gain he did make dietary/exercise to address and is doing well with this, 10lbs weight loss. OV 7.23 doing well without abdominal pain; BM daily without difficulty. OV 1..24 reports abdominal cramping intermittently with stress noted as a trigger. Symptoms last for an hour or less; educated regarding IBS versus IBD. OV 6..24 Pt reports he had his gall bladder removed 09.10.23. Pt states he has been having intense abdominal cramping since his procedure and when he mentioned that in his follow up with general surgery they advised him the cramping should not be from the procedure. Pt reports 2-3 bm per day, occasional diarrhea since cholecystectomy; denies blood in the stool. Pt reports that that his last Stelara injection was 2 weeks ago, but is wondering if the dose needs increased because he notices symptoms start to come back around week 7. Pt states he would like to address his weight gain; endorses that he has gained about 100lbs in the past 4 years. OV 04.04.24 pt reports 3-4 bm per day; usually diarrhea; denies blood in the stool. pt reports that his abdomen is tender if pushed on. pt reports he has recently started having occasional trouble swallowing liquids, is unsure if he has trouble with food as well. Pt wonders if he is due for another colonoscopy, last one was 2 years ago. ESR/CRP? Calp/lact? Serum/ab 05.13.21 6/--? --/--? --/--? Crohn?s +. GAME, ANCA, RAINER comp, celiac, AMA, ASM, hepatitis WNL 09.26.21 6/--? --/--? --/--? TB WNL? 10.18.21? Stelara Infusion 12.15.21 --/--? --/--? 18/neg? TB WNL 04.11/03? --/--? 4.4/neg [facility] Medical History High cholesterol Sleep apnea Chronic cough Non-smoker Fatty liver Vertigo Heartburn CPAP (continuous positive airway pressure) dependence History of edema History of stress test Diarrhea Abdominal pain Gallbladder sludge Arthritis Restless legs History of GI bleed History of diverticulitis History of echocardiogram Hypertension Diverticulitis Crohn's disease Home Medications ?Medication ?Instructions ?Recorded ?Last Taken ?Type lisinopril 10 mg tablet 10 mg PO DAILY 07/31/23 Unknown History ustekinumab 90 mg/mL subcutaneous 90 mg subcut Q8W #1 mL 10/22/23 Unknown Rx syringe (Stelara) colestipol 1 gram tablet 2 g (2 x 1 gram) PO BID 30 days 04/04/24 Unknown Rx #120 tabs Allergy/AdvReac Type Severity Reaction Status Date / Time No Known Allergies Allergy Verified 06/10/24 13:14 Family History Mother Arthritis Diabetes Hypertension Father Hypertension Surgical History Status post laparoscopic cholecystectomy Hx of colonoscopy History of placement of ear tubes Social History Smoking Status: Never smoker alcohol intake: never substance use type: does not use ROS Constitutional Constitutional: Denies fatigue, fever(s), poor appetite, weight gain or weight loss Gastrointestinal Gastrointestinal: Denies belching, bloating, change in bowel habits, change in stool character, chewing difficulty, coffee ground emesis, constipation, cramping, diarrhea, dyspepsia, dysphagia, early satiety, excessive flatus, fecal incontinence, heartburn, hematemesis, hematochezia, hemorrhoids, loose stools, melena, nausea, odynophagia, rectal bleeding, tenesmus, vomiting or weight changes Vital Signs Vital Signs Vital Signs: 06/10/24 13:15 06/10/24 13:15 06/10/24 13:59 Temperature 97.8 F 97.8 F Temperature Source Temporal Pulse Rate 92 92 Respiratory Rate 16 16 Respiratory Pattern Normal Blood Pressure 136/91 H 136/91 H Blood Pressure Mean 106 Blood Pressure Source Monitor Blood Pressure Position Semi-Fowlers Blood Pressure Location Right Arm Pulse Ox 94 94 Oxygen Delivery Method Room Air Room Air Weight Weight: 290 lb Body Mass Index (BMI) 37.2 Physical Exam Const alert, oriented x3, no apparent distress and healthy appearing General Appearance: cooperative GI normal to inspection, nondistended, normoactive bowel sounds, soft to palpation, non-tender and non-distended Percussion: normal to percussion Rectal Exam: deferred Assessment & Plan Assessment/Plan (1) Crohns disease: QUALIFIERS: Gastrointestinal tract location: small and large intestine Digestive disease complication type: without complication Qualified Code(s): K50.80 - Crohn's disease of both small and large intestine without complications PLAN: Assessment and Plan (1) Crohns disease: Status: Chronic Qualifiers: Gastrointestinal tract location: small and large intestine Digestive disease complication type: without complication Qualified Code(s): K50.80 - Crohn's disease of both small and large intestine without complications Plan: At this time he does not have symptoms of Crohn's disease. His stools are normal. He denies tenesmus. He denies any diarrhea or lower GI bleeding. He does not have any new rashes and is not suffering any vision changes. His last CRP and ESR were elevated which corresponds with his flare [place] he was [place]. His Stelara level was 18 with no antibodies. We will recheck his ESR, CRP, fecal calprotectin, stool lactoferrin and a repeat Stelara level as he is concerned about weight gain. We started phenterimine. His weight was 305lbs today. We discontinued phentermine as he did not like the side effects. He is still having some cramping bloating abdominal pain on occasion that he is not sure is associated with food. Since has been a couple years since his last colonoscopy we will repeat his colon for surveillance of his Crohn's disease. (2) IBS (irritable bowel syndrome): Status: Chronic Qualifiers: Irritable bowel syndrome type: with diarrhea Qualified Code(s): K58.0 - Irritable bowel syndrome with diarrhea Plan: Continue PRN dicyclomine (3) Arthritis: Status: Acute Plan: Check ESR and CRP. (4) Diverticulitis: Status: Chronic Plan: He is not having any signs or symptoms of diverticulitis at this time. He is having 2-3 bowel moods per day without any use of laxatives. Continue current recommendations with fiber and liquid intake.
--- NOTE | 2024-06-10 15:39 | OP.CCLET_ITS ---
06/10/2024 Abner Sheth Do Re : Colonoscopy procedure for Maninder Pintor Meryl This procedure was performed on Monday, June 10, 2024. My impressions and recommendations are as follows: Impressions : - Diverticulosis in the recto-sigmoid colon and in the sigmoid colon. - The examination was otherwise normal on direct and retroflexion views. - Crohn's disease with ileitis. Inflammation was found. This was severe. Biopsied. - Stricture in the terminal ileum. Dilated. Recommendations : - Discharge patient to home. - Resume previous diet. - Continue present medications. - Await pathology results. - Repeat colonoscopy in 2 years for surveillance. -Cipro 500 mg twice daily x 7 days -Flagyl 500 mg twice daily x 7 days My findings are described in the full procedure note, which is enclosed. If I can be of further assistance, please feel free to contact me at . Sincerely, Brown Gómez, 06/10/2024 3:39:17 PM This report has been signed electronically.
--- NOTE | 2024-06-10 15:39 | OP.COLON_ITS ---
Patient Name: Maninder Zamorano Procedure Date: 06/10/2024 3:02 PM Date of : 1995 Age: 28 Procedure: Colonoscopy Indications: Crohn's disease of the small bowel, Disease activity assessment of Crohn's disease of the small bowel, Assess therapeutic response to therapy of Crohn's disease of the small bowel Providers: Brown Gómez DO Referring MD: Abner Sheth Do Medicines: Monitored Anesthesia Care Patient Profile: This is a 28 year old male. Refer to note in patient chart for documentation of history and physical. Last Colonoscopy: 3 years ago. Complications: No immediate complications. Procedure: Pre-Anesthesia Assessment: - Prior to the procedure, a History and Physical was performed, and patient medications and allergies were reviewed. The patient is competent. The risks and benefits of the procedure and the sedation options and risks were discussed with the patient. All questions were answered and informed consent was obtained. Patient identification and proposed procedure were verified by the physician in the pre-procedure area. Mental Status Examination: alert and oriented. Airway Examination: normal oropharyngeal airway and neck mobility. Respiratory Examination: clear to auscultation. CV Examination: normal. Prophylactic Antibiotics: The patient does not require prophylactic antibiotics. Prior Anticoagulants: The patient has taken no anticoagulant or antiplatelet agents except for NSAID medication. ASA Grade Assessment: II - A patient with mild systemic disease. After reviewing the risks and benefits, the patient was deemed in satisfactory condition to undergo the procedure. The anesthesia plan was to use monitored anesthesia care (MAC). Immediately prior to administration of medications, the patient was re-assessed for adequacy to receive sedatives. The heart rate, respiratory rate, oxygen saturations, blood pressure, adequacy of pulmonary ventilation, and response to care were monitored throughout the procedure. The physical status of the patient was re-assessed after the procedure. After I obtained informed consent, the scope was passed under direct vision. Throughout the procedure, the patient's blood pressure, pulse, and oxygen saturations were monitored continuously. The pediatric colonoscope was introduced through the anus and advanced to the cecum, identified by appendiceal orifice and ileocecal valve. The colonoscopy was performed without difficulty. The patient tolerated the procedure well. The quality of the bowel preparation was adequate. The terminal ileum, ileocecal valve, appendiceal orifice, and rectum were photographed. Scope In: 3:12:06 PM Scope Withdrawal Time 0 hours 11 minutes 49 seconds Scope Out: 3:25:44 PM Total Procedure Duration Time 0 hours 13 minutes 38 seconds Findings: The perianal and digital rectal examinations were normal. Multiple small and large-mouthed diverticula were found in the recto-sigmoid colon and sigmoid colon. The exam was otherwise without abnormality on direct and retroflexion views. Localized inflammation characterized by congestion (edema), friability, granularity and aphthous ulcerations was found in the distal ileum and in the terminal ileum. The inflammation was severe. Biopsies were taken with a cold forceps for histology. Verification of patient identification for the specimen was done. Estimated blood loss was minimal. The terminal ileum contained a benign-appearing, intrinsic severe stenosis measuring 6 cm (in length) x 3 mm (inner diameter) that was traversed after dilation. A TTS dilator was passed through the scope. Dilation with an 18 mm colonic balloon dilator was performed. Impression: - Diverticulosis in the recto-sigmoid colon and in the sigmoid colon. - The examination was otherwise normal on direct and retroflexion views. - Crohn's disease with ileitis. Inflammation was found. This was severe. Biopsied. - Stricture in the terminal ileum. Dilated. Recommendation: - Discharge patient to home. - Resume previous diet. - Continue present medications. - Await pathology results. - Repeat colonoscopy in 2 years for surveillance. -Cipro 500 mg twice daily x 7 days -Flagyl 500 mg twice daily x 7 days Procedure Code(s): --- Professional --- 49423, Colonoscopy, flexible; with transendoscopic balloon dilation 57519, Colonoscopy, flexible; with biopsy, single or multiple CPT copyright 2021 [employer]. All rights reserved. The codes documented in this report are preliminary and upon rag cutting machine operator review may be revised to meet current compliance requirements. Brown Gómez DO 06/10/2024 3:39:17 PM This report has been signed electronically. Number of Addenda: 0 Note Initiated On: 06/10/2024 3:02 PM
--- NOTE | 2024-06-10 15:41 | PCM.POST.ANE ---
Anesthesia: Postop Eval I Current Vital Signs Temperature: 97.1 F Pulse Rate: 86 Blood Pressure: 132/108 Respiratory Rate: 16 Pulse Ox: 93 Oxygen Delivery Method: Room Air Assessment Airway patent: Yes Spontaneous unlabored respirations: Yes Mental status: Asleep nausea: No Vomiting: No Anesthesia Complication: No Fluid Hydration Crystalloid volume administer (ml): 60 Total IV fluid infused: 60 Progress Note Anesthesia document: Postop Eval 1 completed: Yes
--- NOTE | 2024-06-10 21:30 | PCM.POSTANE2 ---
Anesthesia Postop Eval I Sum Postop Eval Completion status Anesthesia document: Postop Eval 1 completed: Yes Anesthesia Postop Eval I Summary Anesthesia Postop Eval I Summary: Anesthesia Postop Eval I: Assessment Summary Airway patent Yes 06/10/24 15:42 [email or web address] Spontaneous unlabored Yes 06/10/24 15:42 [email or web address] respirations Mental status Asleep 06/10/24 15:42 [email or web address] nausea No 06/10/24 15:42 [email or web address] Vomiting No 06/10/24 15:42 [email or web address] Anesthesia Postop Eval I: Fluid Summary Crystalloid volume administer 60 06/10/24 15:42 [email or web address] (ml) Colloids volume administered ( ml) Blood Product volume administered (ml) Total IV fluid infused 60 06/10/24 15:42 [email or web address] Anesthesia Postop Eval I: Summary Notes Anesthesia Complication No 06/10/24 15:42 [email or web address] Anesthesia Complication Comment: Post-operative progress note Anesthesia: Postop Eval II Evaluation Mental status: Awake and Calm Pain Level: 0 nausea: No Vomiting: No Complications Anesthesia Complication: No
== END 2024-06-10 16:29 | disposition home or self-care (01) ==
PROVIDERS: PCP Student in an Organized Health Care Education/Training Program; Referring Provider Student in an Organized Health Care Education/Training Program; Visit Provider Internal Medicine Gastroenterology
PROC: 0DJD8ZZ Inspection of Lower Intestinal Tract, Via Natural or Artificial Opening Endoscopic (ICD-10-PCS; CPT 45378; principal; 2024-06-10 13:40)
DX: K50.90 Crohn's disease, unspecified, without complications (principal); K56.699 Other intestinal obstruction unspecified as to partial versus complete obstruction; I10 Essential (primary) hypertension; E78.00 Pure hypercholesterolemia, unspecified; G47.30 Sleep apnea, unspecified; Z99.89 Dependence on other enabling machines and devices; Z79.899 Other long term (current) drug therapy; Z90.49 Acquired absence of other specified parts of digestive tract; K57.30 Diverticulosis of large intestine without perforation or abscess without bleeding
CPT/HCPCS: 45380; 43249; 88305; J2405

== ENCOUNTER → 2025-03-06 | Outpatient (CLI) | payer BC, SELFPAY ==
[2025-03-06 12:48] LABS: Hematocrit 47.4 % (40-54); Hemoglobin 16.5 g/dL (13.0-16.5); Immature Granulocytes Count 0.020 X10^3/uL (0.0-0.0); Mean Corp Hgb Conc 34.8 g/dL (32-36); Mean Corpuscular Volume 82.9 fL (80-94); Mean Platelet Vol. 9.6 fl (6.2-12.0); NRBC Flagged by Analyzer 0 % (0-5); Platelet Count 268 K/mm3 (150-450); RBC Distribution Width CV 11.9 % (11.6-14.6); RBC Distribution Width SD 35.9 fl (35.1-43.9); Red Blood Count 5.72 M/mm3 (4.6-6.2); White Blood Count 8.5 K/mm3 (4.4-11.0)
[2025-03-06 13:53] LABS: Hepatitis B Surface Antigen Nonreactive (Nonreactive); Vitamin B12 753 pg/mL (180-914); Vitamin D,25 Hydroxy 40.9 ng/mL (30-100)
[2025-03-06 13:54] LABS: AST(SGOT) 19 U/L (<=37); Alanine Aminotransfer ALT/SGPT 31 U/L (<=46); Albumin, Serum 5.0 g/dL (3.5-5.0); Alkaline Phosphatase 77 U/L (40-129); Anion Gap 12 (5-15); BUN 17 mg/dL (4-19); BUN/Creat Ratio 17.5 RATIO (10-20); Calcium,Total 10.6 mg/dL (7.6-11.0); Carbon Dioxide 27.2 mmol/L (21.0-32.0); Chloride 101 mmol/L (98-108); Globulin 2.4 g/dL (2.2-4.2); Glucose 92 mg/dL (70-99); Potassium 4.4 mmol/L (3.3-5.1)
[2025-03-06 13:58] LABS: CRP < 3.00 mg/L (0.0-3.0)
[2025-03-09 16:09] LABS: QNTFERON TB Mitogen Value > 10.00 IU/mL (.); QNTFERON TB Nil Value 0.01 IU/mL (.); QNTFERON TB1+ Ag Value 0.03 IU/mL (.); QNTFERON TB2+ Ag Value 0.02 IU/mL (.); QNTIFERON TB Positive Criteria Negative (Negative); Zinc, Plasma or Serum 80 ug/dL (44-115)
== END | disposition home or self-care (01) ==
LOC: LAB 12:22
PROVIDERS: PCP Student in an Organized Health Care Education/Training Program; Referring Provider Nurse Practitioner Acute Care; Visit Provider Nurse Practitioner Acute Care
DX: K50.80 Crohn's disease of both small and large intestine without complications (principal); K62.5 Hemorrhage of anus and rectum
CPT/HCPCS: 36415; 80053; 82306; 82607; 84630; 85025; 85652; 86140; 86480; 86704; 87340

== ENCOUNTER → 2025-03-15 | Outpatient (CLI) | payer BC, SELFPAY ==
--- NOTE | 2025-03-15 11:37 | MRI_ITS ---
EXAM: ENTEROGRAPHY ABD/PEL 03/15/2025 CLINICAL HISTORY: K62.5 - HEMORRHAGE OF ANUS AND RECTUM. TECHNIQUE: Procedure Code: MRIMRIENTER Modality: MR Procedure: ENTEROGRAPHY ABD/PEL Multiplanar and multisequence images were obtained without intravenous gadolinium contrast. COMPARISON: CT abdomen and pelvis with IV contrast, 04/11/2021. FINDINGS: Liver: The visualized liver is unremarkable. Biliary: The gallbladder is not identified. The visualized intra and extrahepatic biliary tree is unremarkable. Pancreas: Normal. Spleen: Normal. Adrenals: Normal. Kidneys: Normal. GI tract: The gastrointestinal tract is unremarkable. The ileum ileocecal valve and cecum are unremarkable. There is a normal appendix demonstrated. The anorectal region is unremarkable. There is no abnormal intestinal contrast enhancement. Peritoneum / Retroperitoneum: There are no abnormal intra or retroperitoneal masses or fluid collections. There is no ascites. Visualized pelvic structures: The prostate gland and seminal vesicles are unremarkable. There is no pelvic or inguinal lymphadenopathy. Lymph Nodes: There is no significant mesenteric or retroperitoneal lymphadenopathy. Major Vessels: Unremarkable. Bones: There are no significant bony abnormalities. MRI/Enterography Abd/Pel IMPRESSION: 1. There are no abnormalities of the gastrointestinal tract identified with at tention to the anorectal region. 2. Status post cholecystectomy. Reading Location: [place] [id number]
[2025-03-15 13:09] VITALS: BP 131/82; PULSE 74; RESP 18; O2SAT 99
[2025-03-15] MEDS: Glucagon 1 MG/ML Syringe IV (13:49)
[2025-03-15] MEDS: 0.9% Saline Lock 10 ML Syringe IV (13:53)
[2025-03-15 14:12] VITALS: BP 130/71; PULSE 71; RESP 18
== END | disposition home or self-care (01) ==
LOC: OPMRI 11:36
PROVIDERS: PCP Student in an Organized Health Care Education/Training Program; Referring Provider Nurse Practitioner Acute Care; Visit Provider Nurse Practitioner Acute Care
DX: K62.5 Hemorrhage of anus and rectum (principal); K50.80 Crohn's disease of both small and large intestine without complications
CPT/HCPCS: 74183; 96374; A9575; A4216; J1610